=== PATIENT | female | born 1940 | race Caucasian/White ===

== ENCOUNTER 2017-10-23 16:10 | Inpatient (IN) | payer MEDICARE, OTHER ==
[2017-10-23] MEDS ORDERED: Albuterol/Ipratropium 3.0-0.5 MG/3 ML Neb Soln ONE (16:15)
[2017-10-23] MEDS ORDERED: Albuterol/Ipratropium 3.0-0.5 MG/3 ML Neb Soln NEB ONE (16:23)
--- NOTE | 2017-10-23 16:48 | EDM.PDOC ---
ED HPI GENERAL MEDICAL PROBLEM - General Chief Complaint: Respiratory Problem Stated Complaint: shortness of breath Time Seen by Provider: 10/23/17 16:20 Source of Information: Reports: Patient, Family History Limitations: Reports: Respiratory Distress - History of Present Illness INITIAL COMMENTS - FREE TEXT/NARRATIVE: Patient presents with [id number] with complaints of shortness of breath. States has not been feeling well for about 5 days. Is tachypneic on presentation. Audible wheezing noted. Denies fever. Minimal production with her cough Increased activity intolerance. Does have sinus congestion and drainage but that is chronic. Denies headache. States "feels like can't get enough air in" Onset: Gradual Duration: Day(s): Location: Reports: Chest Quality: Reports: Other (tight) Severity: Moderate Improves with: Reports: Rest Worsens with: Reports: Movement Associated Symptoms: Reports: Cough, cough w sputum, Shortness of Breath, Weakness. Denies: Confusion, Chest Pain, Diaphoresis, Fever/Chills, Headaches, Nausea/Vomiting, Syncope - Related Data Allergies Allergy/AdvReac Type Severity Reaction Status Date / Time meperidine HCl [From Demerol] Allergy Cannot Verified 12/10/14 17:11 Remember montelukast sodium Allergy Cannot Verified 12/10/14 17:11 [From Singulair] Remember Home Meds: Home Meds Albuterol [Proair HFA] 2 puff INH QID PRN 02/04/14 [History] Fluticasone/Salmeterol [Advair 250-50] 1 puff INH BEDTIME 02/04/14 [History] Hydrochlorothiazide 25 mg PO DAILY 02/04/14 [History] Lisinopril [Zestril] 10 mg PO DAILY 02/04/14 [History] Aspirin [Adult Low Dose Aspirin EC] 81 mg PO DAILY #30 tablet. 12/12/14 [Rx] Albuterol/Ipratropium [DuoNeb 3.0-0.5 MG/3 ML] 10/23/17 [History] Past Medical History Respiratory History: Reports: Asthma, COPD Musculoskeletal History: Reports: Other (See Below) Other Musculoskeletal History: MS Social & Family History - Family History Family Medical History: Noncontributory - Tobacco Use Smoking Status *Q: Never Smoker Second Hand Smoke Exposure: No - Caffeine Use Caffeine Use: Reports: Coffee - Alcohol Use Days Per Week of Alcohol Use: 0 - Recreational Drug Use Recreational Drug Use: No - Living Situation & Occupation Living situation: Reports: Occupation: Retired ED ROS GENERAL - Review of Systems Review Of Systems: See Below Constitutional: Reports: Weakness. Denies: Fever, Chills, Malaise, Decreased Appetite HEENT: Reports: Rhinitis, Sinus Problem. Denies: Ear Pain Respiratory: Reports: Shortness of Breath, Wheezing, Cough, Sputum Cardiovascular: Denies: Chest Pain, Edema, Lightheadedness Endocrine: Reports: Fatigue GI/Abdominal: Denies: Abdominal Pain, Constipation, Diarrhea, Nausea, Vomiting : Reports: No Symptoms Musculoskeletal: Reports: No Symptoms Skin: Reports: No Symptoms Neurological: Reports: No Symptoms Psychiatric: Reports: No Symptoms ED EXAM, GENERAL - Physical Exam Exam: See Below Exam Limited By: Respiratory Distress General Appearance: Alert, Moderate Distress Ears: Normal External Exam, Normal TMs Nose: Normal Inspection, Normal Mucosa, No Blood Throat/Mouth: Normal Inspection, Normal Oropharynx Head: Normocephalic Neck: Normal Inspection, Supple, Non-Tender Respiratory/Chest: Respiratory Distress, Decreased Breath Sounds, Wheezing Cardiovascular: Regular Rate, Rhythm GI/Abdominal: Normal Bowel Sounds, Soft, Non-Tender Extremities: Normal Range of Motion Neurological: Alert, Oriented Skin Exam: Warm, Dry Course - Vital Signs Last Recorded V/S: Last Vital Signs Temp 96.3 F 10/23/17 16:14 Pulse 103 H 10/23/17 16:14 Resp 18 10/23/17 16:14 BP 149/78 H 10/23/17 16:14 Pulse Ox 96 10/23/17 16:14 - Orders/Labs/Meds Orders: Active Orders 24 hr Category Date Time Status RT Aerosol Therapy [RC] ASDIRECTED Care 10/23/17 16:24 Active Chest 2V [CR] Stat Exams 10/23/17 16:23 Ordered C-REACTIVE PROTEIN [CHEM] Stat Lab 10/23/17 16:25 Received CBC WITH AUTO DIFF [HEME] Stat Lab 10/23/17 16:25 Received COMPREHENSIVE METABOLIC PN,CMP [CHEM] Stat Lab 10/23/17 16:25 Received D-DIMER QUANTITATIVE [COAG] Stat Lab 10/23/17 16:25 Received UA W/MICROSCOPIC [URIN] Stat Lab 10/23/17 16:23 Uncollected Meds: Medications Discontinued Medications Generic Name Dose Route Start Last Admin Trade Name Tarunq PRN Reason Stop Dose Admin Albuterol/Ipratropium 3 ml 10/23/17 16:23 10/23/17 16:28 Duoneb 3.0-0.5 Mg/3 Ml NEB 10/23/17 16:24 3 ml ONETIME ONE Administration Albuterol/Ipratropium Confirm 10/23/17 16:15 10/23/17 16:27 Duoneb 3.0-0.5 Mg/3 Ml Administered 10/23/17 16:16 Not Given Dose 3 ml .ROUTE .STK-MED ONE - Re-Assessments/Exams Free Text/Narrative Re-Assessment/Exam: 10/23/17 Minimal air exchange on admission to ER. Given DuoNeb and had definite improvement. 1645 Reviewed labs and xray. Stable. No notable infiltrate. Departure - Departure Time of Disposition: 17:13 Disposition: Admitted As Inpatient 68 Condition: Fair Clinical Impression: COPD with acute exacerbation - Discharge Information - Problem List & Annotations (1) Multiple sclerosis SNOMED Code(s): 26063956 Code(s): G35 - MULTIPLE SCLEROSIS Status: Chronic Priority: Medium Current Visit: No (2) COPD with acute exacerbation SNOMED Code(s): 438113626 Code(s): J44.1 - CHRONIC OBSTRUCTIVE PULMONARY DISEASE W (ACUTE) EXACERBATION Status: Acute Priority: High Current Visit: Yes - Problem List Review Problem List Initiated/Reviewed/Updated: Yes - My Orders Last 24 Hours: My Active Orders 10/23/17 16:23 Chest 2V [CR] Stat UA W/MICROSCOPIC [URIN] Stat 10/23/17 16:24 RT Aerosol Therapy [RC] ASDIRECTED 10/23/17 16:25 C-REACTIVE PROTEIN [CHEM] Stat CBC WITH AUTO DIFF [HEME] Stat COMPREHENSIVE METABOLIC PN,CMP [CHEM] Stat D-DIMER QUANTITATIVE [COAG] Stat - Assessment/Plan Admission H&P: Please use this note as an admission H&P Last 24 Hours: My Active Orders 10/23/17 16:23 Chest 2V [CR] Stat UA W/MICROSCOPIC [URIN] Stat 10/23/17 16:24 RT Aerosol Therapy [RC] ASDIRECTED 10/23/17 16:25 C-REACTIVE PROTEIN [CHEM] Stat CBC WITH AUTO DIFF [HEME] Stat COMPREHENSIVE METABOLIC PN,CMP [CHEM] Stat D-DIMER QUANTITATIVE [COAG] Stat Assessment:: COPD Exacerbation Plan: Admit to acute inpatient to Dr. De Leon for COPD Exacerbation. Initiate IV steroids, antibiotics, nebulizer treatments.
[2017-10-23 16:55] LABS: CHLORIDE,CL 103 mEq/L (98-106); SODIUM,NA 142 mEq/L (136-145)
[2017-10-23] MEDS ORDERED: Sodium Chloride 0.9% 10 ML Syringe FLUSH PRN (17:35)
[2017-10-23] MEDS ORDERED: Ondansetron 4 MG Tab.DIS PO PRN (17:35)
[2017-10-23] MEDS ORDERED: Acetaminophen 325 MG Tab PO PRN (17:35)
[2017-10-23] MEDS ORDERED: Albuterol 8 GM Inhaler INH PRN (17:35)
[2017-10-23] MEDS ORDERED: Magnesium Hydroxide 400 MG/5 ML Susp 30 ML Cup PO PRN (17:35)
[2017-10-23] MEDS ORDERED: Temazepam 15 MG Cap PO PRN (17:35)
[2017-10-23] MEDS ORDERED: Enoxaparin 40 MG/0.4 ML Syringe SUBCUT SCH (18:00)
[2017-10-23] MEDS ORDERED: Levofloxacin/Dextrose 5%-Water 500 MG in Premix Bag 1 BAG IV SCH (18:00)
[2017-10-23] MEDS: methylPREDNISolone Sodium Succinate 125 MG/2 ML SDV IVPUSH SCH (18:33)
[2017-10-23] MEDS: Formoterol/Mometasone 200-5 MCG 8.8 GM Inhaler IH SCH (19:53)
[2017-10-23] MEDS: Albuterol/Ipratropium 3.0-0.5 MG/3 ML Neb Soln NEB SCH (19:53)
[2017-10-24] MEDS: Albuterol/Ipratropium 3.0-0.5 MG/3 ML Neb Soln NEB SCH ×5 (01:47→20:22)
[2017-10-24] MEDS ORDERED: Albuterol/Ipratropium 3.0-0.5 MG/3 ML Neb Soln NEB ONE (02:00)
[2017-10-24] MEDS: methylPREDNISolone Sodium Succinate 125 MG/2 ML SDV IVPUSH SCH ×2 (06:14→20:24)
[2017-10-24] MEDS: Lisinopril 10 MG Tab PO SCH (08:08)
[2017-10-24] MEDS: Aspirin 81 MG Tab.EC PO SCH (08:11)
[2017-10-24] MEDS: Hydrochlorothiazide 25 MG Tab PO SCH (08:11)
[2017-10-24 08:22] LABS: CHLORIDE,CL 105 mEq/L (98-106); SODIUM,NA 142 mEq/L (136-145)
--- NOTE | 2017-10-24 08:55 | PCM.PN ---
- General Info Date of Service: 10/24/17 Admission Dx/Problem (Free Text): COPD Exacerbation Functional Status: Reports: Pain Controlled, Tolerating Diet. Denies: Ambulating - Review of Systems General: Reports: Weakness, Fatigue, Malaise. Denies: Fever HEENT: Reports: Sore Throat, Rhinitis, Other (hoarseness) Pulmonary: Reports: Shortness of Breath, Cough, Sputum, Wheezing Cardiovascular: Denies: Chest Pain, Edema, Lightheadedness Gastrointestinal: Denies: Abdominal Pain, Diarrhea, Nausea, Vomiting Genitourinary: Reports: No Symptoms Musculoskeletal: Reports: No Symptoms Skin: Reports: No Symptoms Neurological: Reports: No Symptoms Psychiatric: Reports: No Symptoms - Patient Data Vitals - Most Recent: Last Vital Signs Temp 98.1 F 10/24/17 08:00 Pulse 99 10/24/17 08:00 Resp 20 10/24/17 08:00 BP 140/79 10/24/17 08:08 Pulse Ox 94 L 10/24/17 08:00 Weight - Most Recent: 158 lb 3.2 oz Lab Results Last 24 Hours: Laboratory Results - last 24 hr 10/23/17 10/24/17 10/24/17 Range/Units 20:00 07:00 07:00 WBC 4.1 L (5.0-10.0) 10^3/uL RBC 4.39 (4.00-5.50) 10^6/uL Hgb 14.2 (12.0-16.0) g/dL Hct 44.4 (37.0-47.0) % MCV 101.1 H (82.0-94.0) fL MCH 32.3 H (27.0-32.0) pg MCHC 32.0 L (33.0-38.0) g/dL RDW Coeff of Ed 12.9 (11.0-15.0) % Plt Count 206 (150-400) 10^3/uL Neut % (Auto) 85.3 H (35-85) % Lymph % (Auto) 9.2 L (10-55) % [place] % (Auto) 5.3 (0-16) % Eos % (Auto) 0 (0-5) % Baso % (Auto) 0.2 (0-3) % Neut # (Auto) 3.53 (1.80-7.00) 10^3/uL Lymph # (Auto) 0.38 L (1.00-4.80) 10^3/uL [place] # (Auto) 0.22 (0.00-0.80) 10^3/uL Eos # (Auto) 0.00 (0.00-0.45) 10^3/uL Baso # (Auto) 0.01 10^3/uL Sodium 142 (136-145) mEq/L Potassium 4.5 (3.5-5.0) mEq/L Chloride 105 (98-106) mEq/L Carbon Dioxide 28 (21-32) mmol/L BUN 11 (7-18) mg/dL Creatinine 0.9 (0.6-1.0) mg/dL Est Cr Clr Drug Dosing 44.68 mL/min Estimated GFR (MDRD) > 60 (>=60) mL/min Glucose 106 H (75-99) mg/dL Calcium 9.5 (8.4-10.1) mg/dL C-Reactive Protein < 0.2 L (0.2-0.8) mg/dL Urine Color Yellow (YELLOW) Urine Appearance Slightly cloudy (CLEAR) Urine pH 5.5 (4.5-8.0) Ur Specific [place] <= 1.005 (1.003-1.020) Urine Protein Negative (NEGATIVE) mg/dL Urine Glucose (UA) Negative (NEGATIVE) mg/dL Urine Ketones Negative (NEGATIVE) mg/dL Urine Occult Blood Trace-intact H (NEGATIVE) Urine Nitrite Negative (NEGATIVE) Urine Bilirubin Negative (NEGATIVE) Urine Urobilinogen 0.2 (0.2-1.0) EU/dL Ur Leukocyte Esterase Moderate H (NEGATIVE) Urine RBC Not seen (0-5) /HPF Urine WBC 10-20 H (0-5) /HPF Ur Squamous Epith Cells Few H (NOT SEEN) /HPF Urine Bacteria Few H (NOT SEEN) /HPF Med Orders - Current: Current Medications Acetaminophen (Tylenol) 650 mg PO Q4H PRN PRN Reason: Pain (Mild 1-3)/fever Albuterol (Ventolin Hfa) 0 gm INH QID PRN PRN Reason: Shortness of Breath Albuterol (Proventil Neb Soln) 2.5 mg NEB Q4H PRN PRN Reason: Dyspnea Albuterol/Ipratropium (Duoneb 3.0-0.5 Mg/3 Ml) 3 ml NEB QIDRT [facility] Last Admin: 10/24/17 08:11 Dose: 3 ml Aspirin (Halfprin) 81 mg PO DAILY [facility] Last Admin: 10/24/17 08:11 Dose: 81 mg Enoxaparin Sodium (Lovenox) 40 mg SUBCUT Q24H [facility] Hydrochlorothiazide (Hydrochlorothiazide) 25 mg PO DAILY [facility] Last Admin: 10/24/17 08:11 Dose: 25 mg Levofloxacin/Dextrose 500 mg/ (Premix) 100 mls @ 100 mls/hr IV Q24H [facility] Lisinopril (Prinivil) 10 mg PO DAILY [facility] Last Admin: 10/24/17 08:08 Dose: 10 mg Magnesium Hydroxide (Milk Of Magnesia) 30 ml PO Q12H PRN PRN Reason: Constipation Methylprednisolone Sodium Succinate (Solu-Medrol) 62.5 mg IVPUSH Q12H [facility] Mometasone Furoate/Formoterol Fumar (Dulera 200-5 Mcg) 2 puff IH BEDTIME [facility] Last Admin: 10/23/17 19:53 Dose: 2 puff Ondansetron HCl (Zofran Odt) 4 mg PO Q4H PRN PRN Reason: nausea, able to take PO Sodium Chloride (Saline Flush) 10 ml FLUSH ASDIRECTED PRN PRN Reason: Keep Vein Open Temazepam (Restoril) 15 mg PO BEDTIME PRN PRN Reason: Sleep Discontinued Medications Albuterol/Ipratropium (Duoneb 3.0-0.5 Mg/3 Ml) 3 ml NEB ONETIME ONE Stop: 10/23/17 16:24 Last Admin: 10/23/17 16:28 Dose: 3 ml Albuterol/Ipratropium (Duoneb 3.0-0.5 Mg/3 Ml) Confirm Administered Dose 3 ml .ROUTE .STK-MED ONE Stop: 10/23/17 16:16 Last Admin: 10/23/17 16:27 Dose: Not Given Albuterol/Ipratropium (Duoneb 3.0-0.5 Mg/3 Ml) 3 ml NEB ONETIME ONE Stop: 10/24/17 02:01 Last Admin: 10/24/17 06:11 Dose: Not Given Enoxaparin Sodium (Lovenox) 40 mg SUBCUT Q24H [facility] Last Admin: 10/23/17 18:33 Dose: 40 mg Levofloxacin/Dextrose 500 mg/ (Premix) 100 mls @ 100 mls/hr IV Q24H [facility] Last Admin: 10/23/17 18:33 Dose: 100 mls/hr Methylprednisolone Sodium Succinate (Solu-Medrol) 62.5 mg IVPUSH Q12H [facility] Last Admin: 10/24/17 06:14 Dose: 62.5 mg - Exam General: Alert, Oriented HEENT: Mucous Membr. Moist/[place] Neck: Supple Lungs: Decreased Breath Sounds, Wheezing Cardiovascular: Regular Rate, Regular Rhythm GI/Abdominal Exam: Normal Bowel Sounds, Soft, Non-Tender Back Exam: Full Range of Motion Extremities: Normal Inspection, No Pedal Edema Skin: Warm, Dry Neurological: No New Focal Deficit - Problem List & Annotations (1) COPD with acute exacerbation SNOMED Code(s): 451781424 Code(s): J44.1 - CHRONIC OBSTRUCTIVE PULMONARY DISEASE W (ACUTE) EXACERBATION Status: Acute Priority: High Current Visit: Yes (2) Multiple sclerosis SNOMED Code(s): 54109116 Code(s): G35 - MULTIPLE SCLEROSIS Status: Chronic Priority: Medium Current Visit: Yes - Problem List Review Problem List Initiated/Reviewed/Updated: Yes - My Orders Last 24 Hours: My Active Orders 10/23/17 20:00 CULTURE URINE [RM] Stat 10/24/17 01:27 Albuterol [Proventil Neb Soln] 2.5 mg NEB Q4H PRN 10/24/17 01:28 RT Aerosol Therapy [RC] ASDIRECTED 10/24/17 08:44 CULTURE SPUTUM + SMEAR [RM] Routine 10/24/17 20:00 Enoxaparin [Lovenox] 40 mg SUBCUT Q24H Levofloxacin/Dextrose 5%-Water [Levaquin in D5W 500 MG/100 ML] 500 mg Premix Bag 1 bag IV Q24H methylPREDNISolone Sod Succ [Solu-MEDROL] 62.5 mg IVPUSH Q12H - Assessment Assessment:: COPD Exacerbation - Plan Plan:: Patient feeling somewhat better. States still wheezing, better after nebulizer treatment this am. Is coughing, productive of green sputum. Short of breath yet at times. Afebrile. Vitals stable. WBC still low at 4.1, CRP 0.2. Urine was positive, cultured, covered with Levaquin as well. Will continue with IV steroids and Levaquin. Nebs. Obtain a sputum specimen. Continue to follow.
[2017-10-24] MEDS ORDERED: Non-Formulary Medication 1 Each (Fluticasone/Salmeterol [Advair 250-50 Diskus] 1 PUFF) INH SCH (20:00)
[2017-10-24] MEDS: Formoterol/Mometasone 200-5 MCG 8.8 GM Inhaler IH SCH (20:21)
[2017-10-24] MEDS: Enoxaparin 40 MG/0.4 ML Syringe SUBCUT SCH (20:24)
[2017-10-24] MEDS: Levofloxacin/Dextrose 5%-Water 500 MG in Premix Bag 1 BAG IV SCH (20:26)
[2017-10-25] MEDS: Albuterol 0.083% 2.5 MG/3 ML Neb Soln NEB PRN (05:19)
[2017-10-25] MEDS: Albuterol/Ipratropium 3.0-0.5 MG/3 ML Neb Soln NEB SCH ×4 (08:08→19:37)
[2017-10-25] MEDS: Hydrochlorothiazide 25 MG Tab PO SCH (08:08)
[2017-10-25] MEDS: Lisinopril 10 MG Tab PO SCH (08:08)
[2017-10-25] MEDS: Aspirin 81 MG Tab.EC PO SCH (08:10)
[2017-10-25] MEDS: methylPREDNISolone Sodium Succinate 125 MG/2 ML SDV IVPUSH SCH ×2 (08:10→19:37)
--- NOTE | 2017-10-25 08:42 | PCM.PN ---
- General Info Date of Service: 10/25/17 Admission Dx/Problem (Free Text): COPD Exacerbation Functional Status: Reports: Pain Controlled, Tolerating Diet. Denies: Ambulating - Review of Systems General: Reports: Weakness, Fatigue, Malaise. Denies: Fever HEENT: Reports: Sinus Congestion, Sore Throat, Rhinitis Pulmonary: Reports: Shortness of Breath, Cough (productive cough but unable to expectorate), Wheezing Cardiovascular: Reports: No Symptoms Gastrointestinal: Denies: Abdominal Pain, Nausea, Vomiting Genitourinary: Reports: No Symptoms Musculoskeletal: Reports: No Symptoms Skin: Reports: No Symptoms Neurological: Reports: No Symptoms - Patient Data Vitals - Most Recent: Last Vital Signs Temp 98.1 F 10/25/17 08:00 Pulse 92 10/25/17 08:00 Resp 20 10/25/17 08:00 BP 146/65 H 10/25/17 08:08 Pulse Ox 95 10/25/17 08:00 Weight - Most Recent: 158 lb 3.2 oz Lab Results Last 24 Hours: Laboratory Results - last 24 hr 10/24/17 Range/Units 07:00 Sodium 142 (136-145) mEq/L Potassium 4.5 (3.5-5.0) mEq/L Chloride 105 (98-106) mEq/L Carbon Dioxide 28 (21-32) mmol/L BUN 11 (7-18) mg/dL Creatinine 0.9 (0.6-1.0) mg/dL Est Cr Clr Drug Dosing 44.68 mL/min Estimated GFR (MDRD) > 60 (>=60) mL/min Glucose 106 H (75-99) mg/dL Calcium 9.5 (8.4-10.1) mg/dL C-Reactive Protein < 0.2 L (0.2-0.8) mg/dL [place] Results Last 24 Hours: Microbiology 10/23/17 20:00 Urine Culture - Preliminary Urine, Clean Catch Med Orders - Current: Current Medications Acetaminophen (Tylenol) 650 mg PO Q4H PRN PRN Reason: Pain (Mild 1-3)/fever Last Admin: 10/24/17 20:30 Dose: 650 mg Albuterol (Ventolin Hfa) 0 gm INH QID PRN PRN Reason: Shortness of Breath Albuterol (Proventil Neb Soln) 2.5 mg NEB Q4H PRN PRN Reason: Dyspnea Last Admin: 10/25/17 05:19 Dose: 2.5 mg Albuterol/Ipratropium (Duoneb 3.0-0.5 Mg/3 Ml) 3 ml NEB QIDRT [facility] Last Admin: 10/25/17 08:08 Dose: 3 ml Aspirin (Halfprin) 81 mg PO DAILY [facility] Last Admin: 10/25/17 08:10 Dose: 81 mg Enoxaparin Sodium (Lovenox) 40 mg SUBCUT Q24H [facility] Last Admin: 10/24/17 20:24 Dose: 40 mg Hydrochlorothiazide (Hydrochlorothiazide) 25 mg PO DAILY [facility] Last Admin: 10/25/17 08:08 Dose: 25 mg Levofloxacin/Dextrose 500 mg/ (Premix) 100 mls @ 100 mls/hr IV Q24H [facility] Last Admin: 10/24/17 20:26 Dose: 100 mls/hr Lisinopril (Prinivil) 10 mg PO DAILY [facility] Last Admin: 10/25/17 08:08 Dose: 10 mg Magnesium Hydroxide (Milk Of Magnesia) 30 ml PO Q12H PRN PRN Reason: Constipation Methylprednisolone Sodium Succinate (Solu-Medrol) 62.5 mg IVPUSH Q12H [facility] Last Admin: 10/25/17 08:10 Dose: 62.5 mg Mometasone Furoate/Formoterol Fumar (Dulera 200-5 Mcg) 2 puff IH BEDTIME [facility] Last Admin: 10/24/17 20:21 Dose: Not Given Ondansetron HCl (Zofran Odt) 4 mg PO Q4H PRN PRN Reason: nausea, able to take PO Sodium Chloride (Saline Flush) 10 ml FLUSH ASDIRECTED PRN PRN Reason: Keep Vein Open Temazepam (Restoril) 15 mg PO BEDTIME PRN PRN Reason: Sleep Discontinued Medications Albuterol/Ipratropium (Duoneb 3.0-0.5 Mg/3 Ml) 3 ml NEB ONETIME ONE Stop: 10/23/17 16:24 Last Admin: 10/23/17 16:28 Dose: 3 ml Albuterol/Ipratropium (Duoneb 3.0-0.5 Mg/3 Ml) Confirm Administered Dose 3 ml .ROUTE .STK-MED ONE Stop: 10/23/17 16:16 Last Admin: 10/23/17 16:27 Dose: Not Given Albuterol/Ipratropium (Duoneb 3.0-0.5 Mg/3 Ml) 3 ml NEB ONETIME ONE Stop: 10/24/17 02:01 Last Admin: 10/24/17 06:11 Dose: Not Given Enoxaparin Sodium (Lovenox) 40 mg SUBCUT Q24H [facility] Last Admin: 10/23/17 18:33 Dose: 40 mg Levofloxacin/Dextrose 500 mg/ (Premix) 100 mls @ 100 mls/hr IV Q24H [facility] Last Admin: 10/23/17 18:33 Dose: 100 mls/hr Methylprednisolone Sodium Succinate (Solu-Medrol) 62.5 mg IVPUSH Q12H [facility] Last Admin: 10/24/17 06:14 Dose: 62.5 mg - Exam General: Alert, Oriented HEENT: Mucous Membr. Moist/[place] Neck: Supple Lungs: Decreased Breath Sounds, Wheezing Cardiovascular: Regular Rate, Regular Rhythm GI/Abdominal Exam: Normal Bowel Sounds, Soft, Non-Tender Extremities: Normal Inspection, No Pedal Edema Skin: Warm, Dry Neurological: No New Focal Deficit - Problem List & Annotations (1) COPD with acute exacerbation SNOMED Code(s): 664722953 Code(s): J44.1 - CHRONIC OBSTRUCTIVE PULMONARY DISEASE W (ACUTE) EXACERBATION Status: Acute Priority: High Current Visit: Yes (2) Multiple sclerosis SNOMED Code(s): 29450255 Code(s): G35 - MULTIPLE SCLEROSIS Status: Chronic Priority: Medium Current Visit: Yes - Problem List Review Problem List Initiated/Reviewed/Updated: Yes - My Orders Last 24 Hours: My Active Orders 10/24/17 20:00 Enoxaparin [Lovenox] 40 mg SUBCUT Q24H Levofloxacin/Dextrose 5%-Water [Levaquin in D5W 500 MG/100 ML] 500 mg Premix Bag 1 bag IV Q24H methylPREDNISolone Sod Succ [Solu-MEDROL] 62.5 mg IVPUSH Q12H - Assessment Assessment:: COPD Exacerbation - Plan Plan:: Patient feeling somewhat better. States still wheezing, better after nebulizer treatment this am. Is coughing, productive of green sputum. Short of breath yet at times. Afebrile. Vitals stable. WBC still low at 4.1, CRP 0.2. Urine was positive, cultured, covered with Levaquin as well. Will continue with IV steroids and Levaquin. Nebs. Obtain a sputum specimen. Continue to follow. 10-25-2017 Patient feeling more anxious this am, chest tight. Increased wheezing. Patient states more short of breath and tight due to coughing spell. Cough moist but unable to expectorate. Afebrile. Vital signs stable. Awaiting full urine culture. Not yet obtained sputum culture. Will continue with IV Steroids, Levaquin and nebs. Continue to monitor. Inappropriate yet for discharge.
[2017-10-25] MEDS ORDERED: FLU Vacc QS 2017-18 (36mos UP)/PF 60 MCG/0.5 ML Syringe IM ONE (10:36)
[2017-10-25] MEDS: Enoxaparin 40 MG/0.4 ML Syringe SUBCUT SCH (19:36)
[2017-10-25] MEDS: Formoterol/Mometasone 200-5 MCG 8.8 GM Inhaler IH SCH (19:37)
[2017-10-25] MEDS: Levofloxacin/Dextrose 5%-Water 500 MG in Premix Bag 1 BAG IV SCH (19:46)
[2017-10-26 07:36] LABS: CHLORIDE,CL 104 mEq/L (98-106); SODIUM,NA 142 mEq/L (136-145)
[2017-10-26] MEDS: Hydrochlorothiazide 25 MG Tab PO SCH (07:42)
[2017-10-26] MEDS: Lisinopril 10 MG Tab PO SCH (07:42)
[2017-10-26] MEDS: Albuterol/Ipratropium 3.0-0.5 MG/3 ML Neb Soln NEB SCH ×4 (07:42→19:37)
[2017-10-26] MEDS: Aspirin 81 MG Tab.EC PO SCH (07:42)
[2017-10-26] MEDS: methylPREDNISolone Sodium Succinate 125 MG/2 ML SDV IVPUSH SCH ×2 (07:43→19:38)
--- NOTE | 2017-10-26 11:55 | PCM.PN ---
- General Info Date of Service: 10/26/17 Admission Dx/Problem (Free Text): COPD Exacerbation Functional Status: Reports: Pain Controlled, Tolerating Diet. Denies: Ambulating - Review of Systems General: Reports: Weakness, Fatigue. Denies: Fever HEENT: Reports: Sinus Congestion, Rhinitis. Denies: Sore Throat Pulmonary: Reports: Shortness of Breath, Cough, Sputum, Wheezing Cardiovascular: Denies: Chest Pain, Edema, Lightheadedness Gastrointestinal: Denies: Abdominal Pain, Decreased Appetite, Nausea, Vomiting Genitourinary: Reports: No Symptoms Musculoskeletal: Reports: No Symptoms Skin: Reports: No Symptoms Neurological: Reports: No Symptoms - Patient Data Vitals - Most Recent: Last Vital Signs Temp 97.2 F 10/26/17 08:00 Pulse 89 10/26/17 08:00 Resp 20 10/26/17 08:00 BP 143/88 H 10/26/17 08:00 Pulse Ox 95 10/26/17 08:00 Weight - Most Recent: 158 lb 3.2 oz Lab Results Last 24 Hours: Laboratory Results - last 24 hr 10/26/17 10/26/17 Range/Units 07:00 07:00 WBC 11.3 H (5.0-10.0) 10^3/uL RBC 4.58 (4.00-5.50) 10^6/uL Hgb 14.9 (12.0-16.0) g/dL Hct 46.8 (37.0-47.0) % MCV 102.2 H (82.0-94.0) fL MCH 32.5 H (27.0-32.0) pg MCHC 31.8 L (33.0-38.0) g/dL RDW Coeff of Ed 13.3 (11.0-15.0) % Plt Count 260 (150-400) 10^3/uL Neut % (Auto) 87.8 H (35-85) % Lymph % (Auto) 5.5 L (10-55) % [place] % (Auto) 6.5 (0-16) % Eos % (Auto) 0.1 (0-5) % Baso % (Auto) 0.1 (0-3) % Neut # (Auto) 9.96 H (1.80-7.00) 10^3/uL Lymph # (Auto) 0.62 L (1.00-4.80) 10^3/uL [place] # (Auto) 0.74 (0.00-0.80) 10^3/uL Eos # (Auto) 0.01 (0.00-0.45) 10^3/uL Baso # (Auto) 0.01 10^3/uL Sodium 142 (136-145) mEq/L Potassium 4.1 (3.5-5.0) mEq/L Chloride 104 (98-106) mEq/L Carbon Dioxide 33 H (21-32) mmol/L BUN 26 H D (7-18) mg/dL Creatinine 0.9 (0.6-1.0) mg/dL Est Cr Clr Drug Dosing 44.68 mL/min Estimated GFR (MDRD) > 60 (>=60) mL/min Glucose 115 H (75-99) mg/dL Calcium 9.6 (8.4-10.1) mg/dL C-Reactive Protein < 0.2 L (0.2-0.8) mg/dL [place] Results Last 24 Hours: Microbiology 10/25/17 09:00 Gram Stain - Final Sputum - Expectorated 10/23/17 20:00 Urine Culture - Final Urine, Clean Catch Med Orders - Current: Current Medications Acetaminophen (Tylenol) 650 mg PO Q4H PRN PRN Reason: Pain (Mild 1-3)/fever Last Admin: 10/24/17 20:30 Dose: 650 mg Albuterol (Ventolin Hfa) 0 gm INH QID PRN PRN Reason: Shortness of Breath Albuterol (Proventil Neb Soln) 2.5 mg NEB Q4H PRN PRN Reason: Dyspnea Last Admin: 10/25/17 05:19 Dose: 2.5 mg Albuterol/Ipratropium (Duoneb 3.0-0.5 Mg/3 Ml) 3 ml NEB QIDRT COUNTS INCLUDE 234 BEDS AT THE [facility] Last Admin: 10/26/17 11:34 Dose: 3 ml Aspirin (Halfprin) 81 mg PO DAILY COUNTS INCLUDE 234 BEDS AT THE [facility] Last Admin: 10/26/17 07:42 Dose: 81 mg Enoxaparin Sodium (Lovenox) 40 mg SUBCUT Q24H COUNTS INCLUDE 234 BEDS AT THE [facility] Last Admin: 10/25/17 19:36 Dose: 40 mg Hydrochlorothiazide (Hydrochlorothiazide) 25 mg PO DAILY COUNTS INCLUDE 234 BEDS AT THE [facility] Last Admin: 10/26/17 07:42 Dose: 25 mg Levofloxacin/Dextrose 500 mg/ (Premix) 100 mls @ 100 mls/hr IV Q24H COUNTS INCLUDE 234 BEDS AT THE [facility] Last Admin: 10/25/17 19:46 Dose: 100 mls/hr Lisinopril (Prinivil) 10 mg PO DAILY COUNTS INCLUDE 234 BEDS AT THE [facility] Last Admin: 10/26/17 07:42 Dose: 10 mg Magnesium Hydroxide (Milk Of Magnesia) 30 ml PO Q12H PRN PRN Reason: Constipation Methylprednisolone Sodium Succinate (Solu-Medrol) 62.5 mg IVPUSH Q12H COUNTS INCLUDE 234 BEDS AT THE [facility] Last Admin: 10/26/17 07:43 Dose: 62.5 mg Mometasone Furoate/Formoterol Fumar (Dulera 200-5 Mcg) 2 puff IH BEDTIME COUNTS INCLUDE 234 BEDS AT THE [facility] Last Admin: 10/25/17 19:37 Dose: 2 puff Ondansetron HCl (Zofran Odt) 4 mg PO Q4H PRN PRN Reason: nausea, able to take PO Sodium Chloride (Saline Flush) 10 ml FLUSH ASDIRECTED PRN PRN Reason: Keep Vein Open Temazepam (Restoril) 15 mg PO BEDTIME PRN PRN Reason: Sleep Discontinued Medications Albuterol/Ipratropium (Duoneb 3.0-0.5 Mg/3 Ml) 3 ml NEB ONETIME ONE Stop: 10/23/17 16:24 Last Admin: 10/23/17 16:28 Dose: 3 ml Albuterol/Ipratropium (Duoneb 3.0-0.5 Mg/3 Ml) Confirm Administered Dose 3 ml .ROUTE .STK-MED ONE Stop: 10/23/17 16:16 Last Admin: 10/23/17 16:27 Dose: Not Given Albuterol/Ipratropium (Duoneb 3.0-0.5 Mg/3 Ml) 3 ml NEB ONETIME ONE Stop: 10/24/17 02:01 Last Admin: 10/24/17 06:11 Dose: Not Given Enoxaparin Sodium (Lovenox) 40 mg SUBCUT Q24H COUNTS INCLUDE 234 BEDS AT THE [facility] Last Admin: 10/23/17 18:33 Dose: 40 mg Levofloxacin/Dextrose 500 mg/ (Premix) 100 mls @ 100 mls/hr IV Q24H COUNTS INCLUDE 234 BEDS AT THE [facility] Last Admin: 10/23/17 18:33 Dose: 100 mls/hr Influenza Virus Vaccine (Fluzone Quad [id number]) 60 mcg IM .ONCE ONE Stop: 10/25/17 10:37 Last Admin: 10/25/17 12:36 Dose: 60 mcg Methylprednisolone Sodium Succinate (Solu-Medrol) 62.5 mg IVPUSH Q12H [place] Last Admin: 10/24/17 06:14 Dose: 62.5 mg - Exam General: Alert, Oriented HEENT: Mucous Membr. Moist/[place] Neck: Supple Lungs: Decreased Breath Sounds, Wheezing Cardiovascular: Regular Rate, Regular Rhythm GI/Abdominal Exam: Normal Bowel Sounds, Soft, Non-Tender Extremities: Normal Inspection, No Pedal Edema Skin: Warm, Dry Neurological: No New Focal Deficit Psy/Mental Status: Alert, Normal Affect, Normal Mood - Problem List & Annotations (1) COPD with acute exacerbation SNOMED Code(s): 790966168 Code(s): J44.1 - CHRONIC OBSTRUCTIVE PULMONARY DISEASE W (ACUTE) EXACERBATION Status: Acute Priority: High Current Visit: Yes (2) Multiple sclerosis SNOMED Code(s): 83215955 Code(s): G35 - MULTIPLE SCLEROSIS Status: Chronic Priority: Medium Current Visit: Yes - Problem List Review Problem List Initiated/Reviewed/Updated: Yes - Assessment Assessment:: COPD Exacerbation - Plan Plan:: Patient feeling somewhat better. States still wheezing, better after nebulizer treatment this am. Is coughing, productive of green sputum. Short of breath yet at times. Afebrile. Vitals stable. WBC still low at 4.1, CRP 0.2. Urine was positive, cultured, covered with Levaquin as well. Will continue with IV steroids and Levaquin. Nebs. Obtain a sputum specimen. Continue to follow. 10-25-2017 Patient feeling more anxious this am, chest tight. Increased wheezing. Patient states more short of breath and tight due to coughing spell. Cough moist but unable to expectorate. Afebrile. Vital signs stable. Awaiting full urine culture. Not yet obtained sputum culture. Will continue with IV Steroids, Levaquin and nebs. Continue to monitor. Inappropriate yet for discharge. 10-26-2017 Patient better today than yesterday. Does still wheeze at times, productive cough. Were able to collect a sputum specimen today and sent to lab. WBC up to 11.3, on steroids. CRP remains negative. Final urine culture shows greater than 3 colony types. Encourage ambulation today. Continue same meds. Possible discharge in am.
[2017-10-26] MEDS: Formoterol/Mometasone 200-5 MCG 8.8 GM Inhaler IH SCH (19:35)
[2017-10-26] MEDS: Levofloxacin/Dextrose 5%-Water 500 MG in Premix Bag 1 BAG IV SCH (19:37)
[2017-10-26] MEDS: Enoxaparin 40 MG/0.4 ML Syringe SUBCUT SCH (19:37)
[2017-10-27] MEDS: Albuterol 0.083% 2.5 MG/3 ML Neb Soln NEB PRN (03:33)
[2017-10-27] MEDS: Aspirin 81 MG Tab.EC PO SCH (07:34)
[2017-10-27] MEDS: methylPREDNISolone Sodium Succinate 125 MG/2 ML SDV IVPUSH SCH (07:35)
[2017-10-27] MEDS: Hydrochlorothiazide 25 MG Tab PO SCH (07:38)
[2017-10-27] MEDS: Albuterol/Ipratropium 3.0-0.5 MG/3 ML Neb Soln NEB SCH ×2 (07:40→11:49)
[2017-10-27] MEDS: Lisinopril 10 MG Tab PO SCH (07:40)
[2017-10-27 07:42] VITALS: BP 128/88
[2017-10-27 08:47] LABS: CHLORIDE,CL 102 mEq/L (98-106); SODIUM,NA 141 mEq/L (136-145)
--- NOTE | 2017-10-27 14:34 | PCM.DCSUM1 ---
Discharge Summary - Hospital Course Free Text/Narrative:: Patient presented to ER over the weekend with increased shortness of breath and wheezing. States was unable to tolerate her nebulizer treatments as it was difficult to breath in the med. She had been noting increased sinus congestion over 5 days or so and more shortness of breath building over 24 hours. Presented with diffuse wheezing, minimal air exchange but was maintaining her oxygen sats over 90%. Lab work done indicated more of a viral infection, chest xray clear. UA was noted to have occasional bacteria. Culture ordered. Admitted for COPD Exacerbation and started on IV steroids, nebs and Levaquin. Did get good relief with Duoneb done through a mask. - Discharge Data Discharge Date: 10/27/17 Discharge Disposition: Home, Self-Care 01 Condition: Good - Discharge Diagnosis/Problem(s) (1) COPD with acute exacerbation SNOMED Code(s): 101192124 ICD Code: J44.1 - CHRONIC OBSTRUCTIVE PULMONARY DISEASE W (ACUTE) EXACERBATION Status: Acute Priority: High (2) Multiple sclerosis SNOMED Code(s): 68945692 ICD Code: G35 - MULTIPLE SCLEROSIS Status: Chronic Priority: Medium - Patient Summary/Data Complications: none Hospital Course: Patient has had slow improvement of overall status. Does continue to have occasional wheezing but recovers well after her nebulizer treatments. Is able ambulate in the halls now without dyspnea but does tolerate. She has maintained her oxygen levels on room air. Did obtain a sputum culture which showed normal penny. Urine culture showed greater than 3 colonizes. Lab results are stable. WBC did increase to 11.3 but CRP remained negative. Has been on steroids. Appetite has improved, activity tolerance improved. - Patient Instructions Diet: Usual Diet as Tolerated Activity: As Tolerated - Discharge Plan Prescriptions/Med Rec: Levofloxacin [Levaquin] 500 mg PO Q24H #7 tablet predniSONE [Prednisone] 20 mg PO DAILY #5 tablet Home Medications: Home Meds Albuterol [Proair HFA] 2 puff INH QID PRN 02/04/14 [History] Hydrochlorothiazide 25 mg PO DAILY 02/04/14 [History] Lisinopril [Zestril] 10 mg PO DAILY 02/04/14 [History] Aspirin [Adult Low Dose Aspirin EC] 81 mg PO DAILY #30 tablet. 12/12/14 [Rx] Albuterol/Ipratropium [DuoNeb 3.0-0.5 MG/3 ML] 1 ampule INH QID PRN 10/23/17 [ History] Fluticasone/Salmeterol [Advair 250-50 Diskus] 1 puff INH BEDTIME 10/23/17 [ History] Levofloxacin [Levaquin] 500 mg PO Q24H #7 tablet 10/27/17 [Rx] predniSONE [Prednisone] 20 mg PO DAILY #5 tablet 10/27/17 [Rx] Forms: ED Department Discharge Referrals: Maine Rico PA-C [Family Provider] - (Follow up with Maine Rico PA-C in 10 days) - Discharge Summary/Plan Comment DC Time >30 min.: No Discharge Summary/Plan Comment: Discharge home on Levaquin, prednisone and continue nebulizer treatments. Follow up with Maine Rico in 10 days. - General Info Date of Service: 10/27/17 Admission Dx/Problem (Free Text: COPD Exacerbation Functional Status: Reports: Pain Controlled, Tolerating Diet, Ambulating - Review of Systems General: Reports: Weakness, Fatigue. Denies: Fever, Malaise HEENT: Reports: Rhinitis Pulmonary: Reports: Shortness of Breath, Cough, Wheezing Cardiovascular: Denies: Chest Pain, Edema, Lightheadedness Gastrointestinal: Denies: Abdominal Pain, Nausea, Vomiting Genitourinary: Reports: No Symptoms Musculoskeletal: Reports: No Symptoms Skin: Reports: No Symptoms Neurological: Reports: No Symptoms - Patient Data Vitals - Most Recent: Last Vital Signs Temp 97.2 F 10/27/17 07:43 Pulse 84 10/27/17 07:43 Resp 16 10/27/17 07:43 BP 128/88 10/27/17 07:43 Pulse Ox 96 10/27/17 07:43 Weight - Most Recent: 158 lb 3.2 oz Lab Results - Last 24 hrs: Laboratory Results - last 24 hr 10/27/17 10/27/17 Range/Units 08:30 08:30 WBC 6.7 (5.0-10.0) 10^3/uL RBC 4.38 (4.00-5.50) 10^6/uL Hgb 14.4 (12.0-16.0) g/dL Hct 44.7 (37.0-47.0) % MCV 102.1 H (82.0-94.0) fL MCH 32.9 H (27.0-32.0) pg MCHC 32.2 L (33.0-38.0) g/dL RDW Coeff of Ed 13.1 (11.0-15.0) % Plt Count 215 (150-400) 10^3/uL Neut % (Auto) 88.3 H (35-85) % Lymph % (Auto) 7.6 L (10-55) % [place] % (Auto) 4.0 (0-16) % Eos % (Auto) 0 (0-5) % Baso % (Auto) 0.1 (0-3) % Neut # (Auto) 5.95 (1.80-7.00) 10^3/uL Lymph # (Auto) 0.51 L (1.00-4.80) 10^3/uL [place] # (Auto) 0.27 (0.00-0.80) 10^3/uL Eos # (Auto) 0.00 (0.00-0.45) 10^3/uL Baso # (Auto) 0.01 10^3/uL Sodium 141 (136-145) mEq/L Potassium 3.7 (3.5-5.0) mEq/L Chloride 102 (98-106) mEq/L Carbon Dioxide 31 (21-32) mmol/L BUN 26 H (7-18) mg/dL Creatinine 1.1 H (0.6-1.0) mg/dL Est Cr Clr Drug Dosing 36.55 mL/min Estimated GFR (MDRD) 48 L (>=60) mL/min Glucose 169 H D (75-99) mg/dL Calcium 9.0 (8.4-10.1) mg/dL C-Reactive Protein < 0.2 L (0.2-0.8) mg/dL [facility] Results - Last 24 hrs: Microbiology 10/25/17 09:00 Gram Stain - Final Sputum - Expectorated Sputum Culture - Preliminary Med Orders - Current: Current Medications Discontinued Medications Acetaminophen (Tylenol) 650 mg PO Q4H PRN PRN Reason: Pain (Mild 1-3)/fever Last Admin: 10/24/17 20:30 Dose: 650 mg Albuterol (Ventolin Hfa) 0 gm INH QID PRN PRN Reason: Shortness of Breath Last Admin: 10/26/17 19:36 Dose: 2 puff Albuterol (Proventil Neb Soln) 2.5 mg NEB Q4H PRN PRN Reason: Dyspnea Last Admin: 10/27/17 03:33 Dose: 2.5 mg Albuterol/Ipratropium (Duoneb 3.0-0.5 Mg/3 Ml) 3 ml NEB ONETIME ONE Stop: 10/23/17 16:24 Last Admin: 10/23/17 16:28 Dose: 3 ml Albuterol/Ipratropium (Duoneb 3.0-0.5 Mg/3 Ml) Confirm Administered Dose 3 ml .ROUTE .STK-MED ONE Stop: 10/23/17 16:16 Last Admin: 10/23/17 16:27 Dose: Not Given Albuterol/Ipratropium (Duoneb 3.0-0.5 Mg/3 Ml) 3 ml NEB QIDRT [facility] Last Admin: 10/27/17 11:49 Dose: 3 ml Albuterol/Ipratropium (Duoneb 3.0-0.5 Mg/3 Ml) 3 ml NEB ONETIME ONE Stop: 10/24/17 02:01 Last Admin: 10/24/17 06:11 Dose: Not Given Aspirin (Halfprin) 81 mg PO DAILY [facility] Last Admin: 10/27/17 07:34 Dose: 81 mg Enoxaparin Sodium (Lovenox) 40 mg SUBCUT Q24H [facility] Last Admin: 10/23/17 18:33 Dose: 40 mg Enoxaparin Sodium (Lovenox) 40 mg SUBCUT Q24H [facility] Last Admin: 10/26/17 19:37 Dose: 40 mg Hydrochlorothiazide (Hydrochlorothiazide) 25 mg PO DAILY [facility] Last Admin: 10/27/17 07:38 Dose: 25 mg Levofloxacin/Dextrose 500 mg/ (Premix) 100 mls @ 100 mls/hr IV Q24H [facility] Last Admin: 10/23/17 18:33 Dose: 100 mls/hr Levofloxacin/Dextrose 500 mg/ (Premix) 100 mls @ 100 mls/hr IV Q24H [facility] Last Admin: 10/26/17 19:37 Dose: 100 mls/hr Influenza Virus Vaccine (Fluzone Quad [id number]) 60 mcg IM .ONCE ONE Stop: 10/25/17 10:37 Last Admin: 10/25/17 12:36 Dose: 60 mcg Lisinopril (Prinivil) 10 mg PO DAILY [facility] Last Admin: 10/27/17 07:40 Dose: 10 mg Magnesium Hydroxide (Milk Of Magnesia) 30 ml PO Q12H PRN PRN Reason: Constipation Methylprednisolone Sodium Succinate (Solu-Medrol) 62.5 mg IVPUSH Q12H [facility] Last Admin: 10/24/17 06:14 Dose: 62.5 mg Methylprednisolone Sodium Succinate (Solu-Medrol) 62.5 mg IVPUSH Q12H [facility] Last Admin: 10/27/17 07:35 Dose: 62.5 mg Mometasone Furoate/Formoterol Fumar (Dulera 200-5 Mcg) 2 puff IH BEDTIME [facility] Last Admin: 10/26/17 19:35 Dose: 2 puff Ondansetron HCl (Zofran Odt) 4 mg PO Q4H PRN PRN Reason: nausea, able to take PO Sodium Chloride (Saline Flush) 10 ml FLUSH ASDIRECTED PRN PRN Reason: Keep Vein Open Temazepam (Restoril) 15 mg PO BEDTIME PRN PRN Reason: Sleep - Exam General: Reports: Alert, Oriented HEENT: Reports: Mucous Membr. Moist/[place] Neck: Reports: Supple Lungs: Reports: Decreased Breath Sounds, Wheezing (fine expiratory wheezing, much better air exchange than admit ) Cardiovascular: Reports: Regular Rate, Regular Rhythm GI/Abdominal Exam: Normal Bowel Sounds, Soft, Non-Tender Extremities: No Pedal Edema Skin: Reports: Warm, Dry Neurological: Reports: No New Focal Deficit *Q Meaningful Use (DIS) - VTE *Q VTE Criteria *Q: - Stroke *Q Stroke Criteria *Q: - AMI *Q AMI Criteria *Q:
== END 2017-10-27 13:15 | disposition home or self-care (01) | DRG 192 ==
LOC: CC.ED 16:10 → UNDOADMIN 17:04 → CC.MS 17:04
PROVIDERS: ADMIT Physician Assistant Medical; ATTEND Family Medicine
PROC: 3E0234Z Introduction of Serum, Toxoid and Vaccine into Muscle, Percutaneous Approach (ICD-10-PCS; principal; 2017-10-25)
DX: J44.1 Chronic obstructive pulmonary disease with (acute) exacerbation (principal); G35 Multiple sclerosis; Z88.6 Allergy status to analgesic agent; Z88.8 Allergy status to other drugs, medicaments and biological substances; Z79.82 Long term (current) use of aspirin; Z79.899 Other long term (current) drug therapy; Z23 Encounter for immunization
CPT/HCPCS: 36415; 71020; 80048; 80053; 81001; 85025; 85379; 86140; 87070; 87086; 87205; 90686; 94640; 94644; 99285; A9270-GY; G0008; J1650; J1956; J2930; J7620-GY

== ENCOUNTER 2017-10-29 08:00 | Observation (INO) | payer MEDICARE, OTHER ==
[2017-10-29] MEDS ORDERED: Levofloxacin 500 MG Tab PO SCH (09:00)
--- NOTE | 2017-10-29 09:30 | EDM.PDOC ---
ED HPI GENERAL MEDICAL PROBLEM - General Chief Complaint: General Stated Complaint: weakness Time Seen by Provider: 10/29/17 08:28 Source of Information: Reports: Patient, Family History Limitations: Reports: No Limitations - History of Present Illness INITIAL COMMENTS - FREE TEXT/NARRATIVE: This patient is a 77 year old female that presents to the ER via EMS. Daughter is with her at bedside. The patient reports that she was seen in the ER, then admitted on Tuesday and was discharged home on . The patient reports that after she went home she has become more weak. The patient reports that she was asked to stay in the hospital longer than and recommended home health and other forms of assistance, but it is reported that she declined this. Patient lives at home with her . She reports that this morning she had to go to the bathroom, got up on her own, used walker, but could not get up off the toilet on her own. She reports she yelled for her for 1 hour and he did not hear her, until then. She reports she sat on her toilet for 1 hour due to generally weak. Patient reports that she struggled to walk with a walker at the house. She reports that she does not feel she is able to stay at home with her and care for herself due to her weakness. The daughter at bedside reports the patient has been more weak today and has not been drinking well. She reports that she works and it is difficulty to assist in caring for her mother. At this time I do not feel it is safe for patient to return home since she is unable to perform her ADLs on her own and lack of assistance this morning. She also has renal insufficiency. I will admit obs. She denies vivas, dizziness, n, v, d, f, cp, abd pain, urinary/bowel changes. She reports history of COPD with chronic SOA, unchanged. Onset: Gradual Onset Date: 10/29/17 Duration: Day(s): (1) Severity: Mild Improves with: Reports: None Worsens with: Reports: None Associated Symptoms: Reports: Shortness of Breath (unchanged). Denies: Confusion, Chest Pain, Cough, cough w sputum, Diaphoresis, Fever/Chills, Headaches, Loss of Appetite, Malaise, Nausea/Vomiting, Rash, Seizure, Syncope, Weakness Neck Pain Score (Numeric/FACES): 3 - Related Data Allergies Allergy/AdvReac Type Severity Reaction Status Date / Time meperidine HCl [From Demerol] Allergy Cannot Verified 10/29/17 08:04 Remember montelukast sodium Allergy Cannot Verified 10/29/17 08:04 [From Singulair] Remember Home Meds: Home Meds Albuterol [Proair HFA] 2 puff INH QID PRN 02/04/14 [History] Hydrochlorothiazide 25 mg PO DAILY 02/04/14 [History] Lisinopril [Zestril] 10 mg PO DAILY 02/04/14 [History] Aspirin [Adult Low Dose Aspirin EC] 81 mg PO DAILY #30 tablet. 12/12/14 [Rx] Albuterol/Ipratropium [DuoNeb 3.0-0.5 MG/3 ML] 1 ampule INH QID PRN 10/23/17 [ History] Fluticasone/Salmeterol [Advair 250-50 Diskus] 1 puff INH BEDTIME 10/23/17 [ History] Levofloxacin [Levaquin] 500 mg PO Q24H #7 tablet 10/27/17 [Rx] predniSONE [Prednisone] 20 mg PO DAILY #5 tablet 10/27/17 [Rx] Past Medical History Respiratory History: Reports: Asthma, COPD Musculoskeletal History: Reports: Other (See Below) Other Musculoskeletal History: MS Social & Family History - Family History Family Medical History: Noncontributory - Tobacco Use Smoking Status *Q: Never Smoker Second Hand Smoke Exposure: No - Caffeine Use Caffeine Use: Reports: None - Alcohol Use Days Per Week of Alcohol Use: 0 - Recreational Drug Use Recreational Drug Use: No - Living Situation & Occupation Living situation: Reports: Occupation: Retired ED ROS GENERAL - Review of Systems Review Of Systems: See Below Constitutional: Reports: Malaise, Weakness (general) HEENT: Reports: No Symptoms Respiratory: Reports: Shortness of Breath (chronic, unchanged. ) Cardiovascular: Reports: No Symptoms Endocrine: Reports: No Symptoms GI/Abdominal: Reports: No Symptoms : Reports: No Symptoms Musculoskeletal: Reports: No Symptoms Skin: Reports: No Symptoms Neurological: Reports: No Symptoms Psychiatric: Reports: No Symptoms Hematologic/Lymphatic: Reports: No Symptoms Immunologic: Reports: No Symptoms ED EXAM, GENERAL - Physical Exam Exam: See Below Exam Limited By: No Limitations General Appearance: Alert, WD/WN, No Apparent Distress Eye Exam: Bilateral Eye: Normal Inspection, PERRL Ears: Normal External Exam, Normal Canal, Hearing Grossly Normal Ear Exam: Bilateral Ear: Auricle Normal, Canal Normal, TM normal Nose: Normal Inspection, Normal Mucosa, No Blood Throat/Mouth: Normal Inspection, Normal Lips, Normal Gums, Normal Oropharynx, Normal Voice, No Airway Compromise Head: Atraumatic, Normocephalic Neck: Normal Inspection, Supple, Non-Tender, Full Range of Motion Respiratory/Chest: No Respiratory Distress, No Accessory Muscle Use, Chest Non- Tender, Rhonchi, Wheezing. No: Accessory Muscle Use, Retractions, Splinting Cardiovascular: Normal Peripheral Pulses, Regular Rate, Rhythm, No Edema, No Gallop, No JVD, No Murmur, No Rub Peripheral Pulses: 2+: Radial (L), Radial (R), Posterior Tibial (L), Posterior Tibial (R), Dorsalis Pedis (L), Dorsalis Pedis (R) GI/Abdominal: Soft, Non-Tender, No Organomegaly, No Distention, No Mass, Pelvis Stable Back Exam: Normal Inspection, Full Range of Motion Extremities: Normal Inspection, Normal Range of Motion, Non-Tender, No Pedal Edema, Normal Capillary Refill Neurological: Alert, Oriented, CN II-XII Intact, Abnormal Gait (gait with assistance with standing to bathroom. Generally weak. ) Psychiatric: Normal Affect, Normal Mood Skin Exam: Warm, Dry, Intact, Normal Color, No Rash Lymphatic: No Adenopathy Course - Vital Signs Last Recorded V/S: Last Vital Signs Temp 98.2 F 10/30/17 16:00 Pulse 102 H 10/30/17 16:00 Resp 19 10/30/17 16:00 BP 138/54 L 10/30/17 16:00 Pulse Ox 97 10/30/17 16:00 - Orders/Labs/Meds Orders: Medication Orders Acetaminophen (Tylenol) 650 mg PO Q4H PRN PRN Reason: Pain (Mild 1-3)/fever Hydrocodone Bitart/Acetaminophen ([place] 325-5 Mg) 1 tab PO Q4H PRN PRN Reason: Pain (moderate 4-6) Albuterol (Ventolin Hfa) 0 gm INH QID PRN PRN Reason: Shortness of Breath Albuterol/Ipratropium (Duoneb 3.0-0.5 Mg/3 Ml) 3 ml INH QID PRN PRN Reason: Dyspnea Albuterol/Ipratropium (Duoneb 3.0-0.5 Mg/3 Ml) 3 ml NEB TIDRT [facility] Last Admin: 10/30/17 20:01 Dose: 3 ml Admin: 10/30/17 13:54 Dose: 3 ml Admin: 10/30/17 07:35 Dose: 3 ml Admin: 10/29/17 20:26 Dose: 3 ml Admin: 10/29/17 14:19 Dose: 3 ml Aspirin (Halfprin) 81 mg PO DAILY [facility] Last Admin: 10/30/17 07:35 Dose: 81 mg Docusate Sodium (Colace) 100 mg PO BID PRN PRN Reason: Constipation Enoxaparin Sodium (Lovenox) 40 mg SUBCUT DAILY [facility] Last Admin: 10/30/17 09:01 Dose: 40 mg Hydrochlorothiazide (Hydrochlorothiazide) 25 mg PO DAILY [facility] Last Admin: 10/30/17 07:31 Dose: 25 mg Levofloxacin (Levaquin) 500 mg PO Q24H [facility] Stop: 11/03/17 08:01 Lisinopril (Prinivil) 10 mg PO DAILY [facility] Last Admin: 10/30/17 07:32 Dose: 10 mg Advair 250/50 Diskus (, Own Med) 1 each INH DAILYRT [facility] Last Admin: 10/30/17 20:02 Dose: 1 each Ondansetron HCl (Zofran) 4 mg IV Q6H PRN PRN Reason: Nausea/Vomiting Prednisone (Prednisone) 20 mg PO DAILY [facility] Stop: 11/02/17 08:00 Last Admin: 10/30/17 07:31 Dose: 20 mg Temazepam (Restoril) 15 mg PO BEDTIME PRN PRN Reason: Sleep Labs: Laboratory Tests 10/29/17 10/29/17 Range/Units 08:25 08:25 WBC 10.7 H (5.0-10.0) 10^3/uL RBC 4.91 (4.00-5.50) 10^6/uL Hgb 16.1 H (12.0-16.0) g/dL Hct 49.7 H (37.0-47.0) % MCV 101.2 H (82.0-94.0) fL MCH 32.8 H (27.0-32.0) pg MCHC 32.4 L (33.0-38.0) g/dL RDW Coeff of Ed 13.0 (11.0-15.0) % Plt Count 248 (150-400) 10^3/uL Neut % (Auto) 70.0 (35-85) % Lymph % (Auto) 17.3 (10-55) % [place] % (Auto) 12.0 (0-16) % Eos % (Auto) 0.7 (0-5) % Baso % (Auto) 0 (0-3) % Neut # (Auto) 7.46 H (1.80-7.00) 10^3/uL Lymph # (Auto) 1.84 (1.00-4.80) 10^3/uL [place] # (Auto) 1.28 H (0.00-0.80) 10^3/uL Eos # (Auto) 0.07 (0.00-0.45) 10^3/uL Baso # (Auto) 0.00 10^3/uL Sodium 142 (136-145) mEq/L Potassium 4.0 (3.5-5.0) mEq/L Chloride 103 (98-106) mEq/L Carbon Dioxide 37 H (21-32) mmol/L BUN 31 H (7-18) mg/dL Creatinine 1.1 H (0.6-1.0) mg/dL Est Cr Clr Drug Dosing 36.55 mL/min Estimated GFR (MDRD) 48 L (>=60) mL/min Glucose 98 D (75-99) mg/dL Calcium 8.7 (8.4-10.1) mg/dL Total Bilirubin 0.9 (0.0-1.0) mg/dL AST 25 (15-37) U/L ALT 34 (12-78) U/L Alkaline Phosphatase 85 (46-116) U/L Total Protein 6.6 (6.4-8.2) g/dL Albumin 3.5 (3.4-5.0) g/dL Meds: Medications Generic Name Dose Route Start Last Admin Trade Name Freq PRN Reason Stop Dose Admin Acetaminophen 650 mg 10/29/17 09:46 Tylenol PO Q4H PRN Pain (Mild 1-3)/fever Hydrocodone Bitart/Acetaminophen 1 tab 10/29/17 09:46 [place] 325-5 Mg PO Q4H PRN Pain (moderate 4-6) Albuterol 0 gm 10/29/17 09:46 Ventolin Hfa INH QID PRN Shortness of Breath Albuterol/Ipratropium 3 ml 10/29/17 09:46 Duoneb 3.0-0.5 Mg/3 Ml INH QID PRN Dyspnea Albuterol/Ipratropium 3 ml 10/29/17 14:00 10/30/17 20:01 Duoneb 3.0-0.5 Mg/3 Ml NEB 3 ml TIDRT [facility] Administration Aspirin 81 mg 10/30/17 08:00 10/30/17 07:35 Halfprin PO 81 mg DAILY [facility] Administration Docusate Sodium 100 mg 10/29/17 09:46 Colace PO BID PRN Constipation Enoxaparin Sodium 40 mg 10/30/17 09:00 10/30/17 09:01 Lovenox SUBCUT 40 mg DAILY [facility] Administration Hydrochlorothiazide 25 mg 10/30/17 08:00 10/30/17 07:31 Hydrochlorothiazide PO 25 mg DAILY [facility] Administration Levofloxacin 500 mg 10/31/17 08:00 Levaquin PO 11/03/17 08:01 Q24H [facility] Lisinopril 10 mg 10/30/17 08:00 10/30/17 07:32 Prinivil PO 10 mg DAILY [facility] Administration Advair 250/50 Diskus 1 each 10/30/17 20:00 10/30/17 20:02 , Own Med INH 1 each DAILYRT [facility] Administration Ondansetron HCl 4 mg 10/29/17 09:46 Zofran IV Q6H PRN Nausea/Vomiting Prednisone 20 mg 10/30/17 08:00 10/30/17 07:31 Prednisone PO 11/02/17 08:00 20 mg DAILY [facility] Administration Temazepam 15 mg 10/29/17 09:46 Restoril PO BEDTIME PRN Sleep Discontinued Medications Generic Name Dose Route Start Last Admin Trade Name Freq PRN Reason Stop Dose Admin Enoxaparin Sodium 30 mg 10/29/17 09:46 10/29/17 11:03 Lovenox SUBCUT 30 mg Q24H [facility] Administration Sodium Chloride 1,000 mls @ 75 mls/hr 10/29/17 09:46 10/30/17 00:09 Normal Saline IV 75 mls/hr ASDIRECTED [facility] Administration Levofloxacin 500 mg 10/29/17 09:00 10/29/17 11:03 Levaquin PO 11/04/17 09:00 500 mg Q24H [facility] Administration Levofloxacin 500 mg 10/30/17 09:00 Levaquin PO 11/03/17 09:01 Q24H [facility] Levofloxacin 500 mg 10/30/17 09:00 10/30/17 09:01 Levaquin PO 10/30/17 09:01 500 mg DAILY [facility] Administration Advair 250/50 Mcg 0 each 10/29/17 20:00 10/30/17 07:33 Patients Own Med INH Not Given BIDRT [facility] - Radiology Interpretation Free Text/Narrative:: CXR: No acute findings from previous. Departure - Departure Time of Disposition: 09:05 Disposition: Refer to Observation Condition: Fair Clinical Impression: Renal insufficiency, Generalized weakness - Discharge Information - Assessment/Plan Plan: PLEASE SEE RN NOTE FOR PFSH. PLEASE USE ER H&P ADMIT H&P.
[2017-10-29] MEDS ORDERED: Albuterol/Ipratropium 3.0-0.5 MG/3 ML Neb Soln INH PRN (09:46)
[2017-10-29] MEDS ORDERED: Acetaminophen/HYDROcodone 325-5 MG Tab PO PRN (09:46)
[2017-10-29] MEDS ORDERED: Temazepam 15 MG Cap PO PRN (09:46)
[2017-10-29] MEDS ORDERED: Enoxaparin 30 MG/0.3 ML Syringe SUBCUT SCH (09:46)
[2017-10-29] MEDS ORDERED: Albuterol 8 GM Inhaler INH PRN (09:46)
[2017-10-29] MEDS ORDERED: Acetaminophen 325 MG Tab PO PRN (09:46)
[2017-10-29] MEDS ORDERED: Ondansetron 4 MG/2 ML SDV IV PRN (09:46)
[2017-10-29] MEDS ORDERED: Docusate Sodium 100 MG Cap PO PRN (09:46)
[2017-10-29] MEDS: Sodium Chloride 0.9% 1,000 ML IV SCH (11:03)
[2017-10-29] MEDS: Albuterol/Ipratropium 3.0-0.5 MG/3 ML Neb Soln NEB SCH ×2 (14:19→20:26)
[2017-10-29] MEDS ORDERED: Formoterol/Mometasone 200-5 MCG 8.8 GM Inhaler IH SCH (20:00)
[2017-10-29] MEDS: ADVAIR INH SCH (20:26)
[2017-10-30] MEDS: Sodium Chloride 0.9% 1,000 ML IV SCH (00:09)
[2017-10-30] MEDS: PREDNISONE 20 MG PO SCH (07:31)
[2017-10-30] MEDS: Hydrochlorothiazide 25 MG Tab **PTOM PO SCH (07:31)
[2017-10-30] MEDS: LISINOPRIL 10 MG PO SCH (07:32)
[2017-10-30] MEDS: ADVAIR INH SCH ×2 (07:33→20:02)
[2017-10-30] MEDS: Albuterol/Ipratropium 3.0-0.5 MG/3 ML Neb Soln NEB SCH ×3 (07:35→20:01)
[2017-10-30] MEDS: Aspirin 81 MG Tab.EC PO SCH (07:35)
[2017-10-30] MEDS ORDERED: Enoxaparin 30 MG/0.3 ML Syringe SUBCUT SCH (08:00)
[2017-10-30 08:14] LABS: CHLORIDE,CL 108 mEq/L (98-106); SODIUM,NA 142 mEq/L (136-145)
[2017-10-30] MEDS ORDERED: LEVOFLOXACIN 500 MG PO SCH ×2 (09:00)
[2017-10-30] MEDS: Enoxaparin 40 MG/0.4 ML Syringe SUBCUT SCH (09:01)
--- NOTE | 2017-10-30 11:13 | PCM.PN ---
- General Info Date of Service: 10/30/17 Functional Status: Reports: Pain Controlled, Tolerating Diet, Ambulating (With walker and some assistance.), Urinating, Other - Review of Systems General: Reports: No Symptoms HEENT: Reports: No Symptoms Pulmonary: Reports: No Symptoms Cardiovascular: Reports: No Symptoms Gastrointestinal: Reports: No Symptoms Genitourinary: Reports: No Symptoms Musculoskeletal: Reports: No Symptoms Skin: Reports: No Symptoms Neurological: Reports: No Symptoms Psychiatric: Reports: No Symptoms - Patient Data Vitals - Most Recent: Last Vital Signs Temp 97.5 F 10/30/17 07:42 Pulse 89 10/30/17 07:42 Resp 20 10/30/17 07:42 BP 133/55 L 10/30/17 07:42 Pulse Ox 97 10/30/17 07:42 Weight - Most Recent: 158 lb I&O - Last 24 Hours: Intake & Output 10/29/17 10/30/17 10/30/17 22:59 06:59 14:59 Intake Total 700 1183 Output Total 550 Balance 700 633 Lab Results Last 24 Hours: Laboratory Results - last 24 hr 10/30/17 10/30/17 10/30/17 Range/Units 04:22 08:00 08:00 WBC 7.4 (5.0-10.0) 10^3/uL RBC 4.17 (4.00-5.50) 10^6/uL Hgb 13.5 (12.0-16.0) g/dL Hct 42.4 (37.0-47.0) % MCV 101.7 H (82.0-94.0) fL MCH 32.4 H (27.0-32.0) pg MCHC 31.8 L (33.0-38.0) g/dL RDW Coeff of Ed 13.0 (11.0-15.0) % Plt Count 179 (150-400) 10^3/uL Neut % (Auto) 64.6 (35-85) % Lymph % (Auto) 23.8 (10-55) % [place] % (Auto) 10.2 (0-16) % Eos % (Auto) 1.4 (0-5) % Baso % (Auto) 0 (0-3) % Neut # (Auto) 4.77 (1.80-7.00) 10^3/uL Lymph # (Auto) 1.76 (1.00-4.80) 10^3/uL [place] # (Auto) 0.75 (0.00-0.80) 10^3/uL Eos # (Auto) 0.10 (0.00-0.45) 10^3/uL Baso # (Auto) 0.00 10^3/uL Sodium 142 (136-145) mEq/L Potassium 4.2 (3.5-5.0) mEq/L Chloride 108 H (98-106) mEq/L Carbon Dioxide 33 H (21-32) mmol/L BUN 24 H (7-18) mg/dL Creatinine 0.9 (0.6-1.0) mg/dL Est Cr Clr Drug Dosing 44.68 mL/min Estimated GFR (MDRD) > 60 (>=60) mL/min Glucose 98 (75-99) mg/dL Calcium 8.0 L (8.4-10.1) mg/dL C-Reactive Protein < 0.2 L (0.2-0.8) mg/dL Urine Color Yellow (YELLOW) Urine Appearance Clear (CLEAR) Urine pH 5.5 (4.5-8.0) Ur Specific [place] 1.020 (1.003-1.020) Urine Protein Negative (NEGATIVE) mg/dL Urine Glucose (UA) Negative (NEGATIVE) mg/dL Urine Ketones Negative (NEGATIVE) mg/dL Urine Occult Blood Negative (NEGATIVE) Urine Nitrite Negative (NEGATIVE) Urine Bilirubin Negative (NEGATIVE) Urine Urobilinogen 0.2 (0.2-1.0) EU/dL Ur Leukocyte Esterase Negative (NEGATIVE) Urine RBC Not seen (0-5) /HPF Urine WBC 0-5 (0-5) /HPF Ur Squamous Epith Cells Few H (NOT SEEN) /HPF Urine Mucus Occasional H (NOT SEEN) /HPF Med Orders - Current: Current Medications Acetaminophen (Tylenol) 650 mg PO Q4H PRN PRN Reason: Pain (Mild 1-3)/fever Hydrocodone Bitart/Acetaminophen ([place] 325-5 Mg) 1 tab PO Q4H PRN PRN Reason: Pain (moderate 4-6) Albuterol (Ventolin Hfa) 0 gm INH QID PRN PRN Reason: Shortness of Breath Albuterol/Ipratropium (Duoneb 3.0-0.5 Mg/3 Ml) 3 ml INH QID PRN PRN Reason: Dyspnea Albuterol/Ipratropium (Duoneb 3.0-0.5 Mg/3 Ml) 3 ml NEB TIDRT [facility]S [facility] 234 BEDS AT [facility] Last Admin: 10/30/17 07:35 Dose: 3 ml Aspirin (Halfprin) 81 mg PO DAILY [facility] 234 BEDS AT [facility] Last Admin: 10/30/17 07:35 Dose: 81 mg Docusate Sodium (Colace) 100 mg PO BID PRN PRN Reason: Constipation Enoxaparin Sodium (Lovenox) 40 mg SUBCUT DAILY [facility] 234 BEDS AT [facility] Last Admin: 10/30/17 09:01 Dose: 40 mg Hydrochlorothiazide (Hydrochlorothiazide) 25 mg PO DAILY [facility]CLUDE 234 BEDS AT [facility] Last Admin: 10/30/17 07:31 Dose: 25 mg Sodium Chloride (Normal Saline) 1,000 mls @ 75 mls/hr IV ASDIRECTED COUNTS INCLUDE 234 BEDS AT THE [facility] Last Admin: 10/30/17 00:09 Dose: 75 mls/hr Levofloxacin (Levaquin) 500 mg PO Q24H [facility]S INCLUDE 234 BEDS AT [facility] Stop: 11/03/17 08:01 Lisinopril (Prinivil) 10 mg PO DAILY [facility]CLUDE 234 BEDS AT [facility] Last Admin: 10/30/17 07:32 Dose: 10 mg Advair 250/50 Diskus (, Own Med) 1 each INH DAILYRT COUNTS INCLUDE 234 BEDS AT [facility] Ondansetron HCl (Zofran) 4 mg IV Q6H PRN PRN Reason: Nausea/Vomiting Prednisone (Prednisone) 20 mg PO DAILY [facility] 234 BEDS AT [facility] Stop: 11/02/17 08:00 Last Admin: 10/30/17 07:31 Dose: 20 mg Temazepam (Restoril) 15 mg PO BEDTIME PRN PRN Reason: Sleep Discontinued Medications Enoxaparin Sodium (Lovenox) 30 mg SUBCUT Q24H [facility]S INCLUDE 234 BEDS AT [facility] Last Admin: 10/29/17 11:03 Dose: 30 mg Levofloxacin (Levaquin) 500 mg PO Q24H [facility]S INCLUDE 234 BEDS AT [facility] Stop: 11/04/17 09:00 Last Admin: 10/29/17 11:03 Dose: 500 mg Levofloxacin (Levaquin) 500 mg PO Q24H [facility]S INCLUDE 234 BEDS AT [facility] Stop: 11/03/17 09:01 Levofloxacin (Levaquin) 500 mg PO DAILY [facility]CLUDE 234 BEDS AT [facility] Stop: 10/30/17 09:01 Last Admin: 10/30/17 09:01 Dose: 500 mg Advair 250/50 Mcg (Patients Own Med) 0 each INH BIDRT [facility] Last Admin: 10/30/17 07:33 Dose: Not Given - Exam General: Alert, Oriented, Cooperative, No Acute Distress HEENT: Pupils Equal, Pupils Reactive, Mucous Membr. Moist/[place] Neck: Supple, Trachea Midline, No JVD Lungs: Clear to Auscultation, Normal Respiratory Effort Cardiovascular: Regular Rate, Regular Rhythm, No Murmurs GI/Abdominal Exam: Soft, Non-Tender, No Organomegaly, No Distention, No Mass, Pelvis Stable Back Exam: Normal Inspection, Full Range of Motion Extremities: Normal Inspection, Normal Range of Motion, Non-Tender, No Pedal Edema, Normal Capillary Refill Peripheral Pulses: 2+: Radial (L), Radial (R), Posterior Tibial (L), Posterior Tibial (R), Dorsalis Pedis (L), Dorsalis Pedis (R) Skin: Warm, Dry, Intact Neurological: No New Focal Deficit Psy/Mental Status: Alert, Normal Affect, Normal Mood - Problem List Review Problem List Initiated/Reviewed/Updated: Yes - My Orders Last 24 Hours: My Active Orders 10/29/17 14:00 Albuterol/Ipratropium [DuoNeb 3.0-0.5 MG/3 ML] 3 ml NEB TIDRT 10/29/17 Lunch 2 Gram Sodium Diet [DIET] 10/30/17 08:00 Aspirin [Halfprin] 81 mg PO DAILY Hydrochlorothiazide 25 mg PO DAILY Lisinopril [Prinivil] 10 mg PO DAILY predniSONE 20 mg PO DAILY 10/30/17 09:00 Enoxaparin [Lovenox] 40 mg SUBCUT DAILY 10/30/17 20:00 Non-Formulary Medication [NF Drug] 1 each INH DAILYRT 10/31/17 05:00 BASIC METABOLIC PANEL,BMP [CHEM] DAILY C-REACTIVE PROTEIN [CHEM] DAILY CBC WITH AUTO DIFF [HEME] DAILY 10/31/17 08:00 Levofloxacin [Levaquin] 500 mg PO Q24H 11/01/17 05:00 BASIC METABOLIC PANEL,BMP [CHEM] DAILY C-REACTIVE PROTEIN [CHEM] DAILY CBC WITH AUTO DIFF [HEME] DAILY - Plan Plan:: I will continue to admit this patient. I would like her PCP to see her with possible vp digital marketing social media and crm. I do not feel this patient can safely go home. She reports she has limited helpful resources at home. I did discuss with the patient possibility other options such as home health, or placement, she said she would like to discuss this with her PCP Tuesday. She did require assistance here today with transferring and some ADLs.
[2017-10-31 07:31] LABS: CHLORIDE,CL 105 mEq/L (98-106); SODIUM,NA 141 mEq/L (136-145)
[2017-10-31] MEDS ORDERED: LEVOFLOXACIN 500 MG PO SCH (08:00)
[2017-10-31 08:14] VITALS: BP 137/63
[2017-10-31] MEDS: Hydrochlorothiazide 25 MG Tab **PTOM PO SCH (08:24)
[2017-10-31] MEDS: ADVAIR INH SCH ×2 (08:25→08:32)
[2017-10-31] MEDS: PREDNISONE 20 MG PO SCH (08:27)
[2017-10-31] MEDS: LISINOPRIL 10 MG PO SCH (08:28)
[2017-10-31] MEDS: Enoxaparin 40 MG/0.4 ML Syringe SUBCUT SCH (08:32)
[2017-10-31] MEDS: Aspirin 81 MG Tab.EC PO SCH (08:33)
[2017-10-31] MEDS: Albuterol/Ipratropium 3.0-0.5 MG/3 ML Neb Soln NEB SCH (08:33)
--- NOTE | 2017-10-31 10:56 | PCM.DCSUM1 ---
Discharge Summary - Hospital Course Free Text/Narrative:: Patient returned to ER on Tuesday per EMS due to increased weakness. Was in the hospital for 4 days for COPD exacerbation, was up and walking around her and discharged home on . [place] that over the last 24 hours, was getting weaker again. Patient was on the toilet and sat there for an hour as she was unable to get up on her home and her did not hear her hollering for help. Patient states it felt like her legs wouldn't hold her due to weakness. She typically ambulates about the home with a walker. [place] she was too weak to take care of herself so was admitted to hospital again. Chest xray did not show changes. Labs stable. - Discharge Data Discharge Date: 10/31/17 Discharge Disposition: Home, Self-Care 01 Condition: Fair - Patient Summary/Data Complications: none Hospital Course: Patient has done well during observation stay. Lungs are much improved. Has continued on her oral Levaquin and prednisone as well as nebs. Is now up and ambulating again in the room with her walker. Feels stronger. Has no concerns today. Does agree to home health services. Will have physical therapy for strengthening, nursing to monitor her lungs and oxygen sats due to recent exacerbation of COPD, services such as bathing and ADLs as needed. Patient unable to travel to PT due to weakness and 's own medical conditions. Dr. De Leon to oversee her care. - Patient Instructions Diet: Usual Diet as Tolerated Activity: As Tolerated - Discharge Plan Home Medications: Home Meds Albuterol [Proair HFA] 2 puff INH QID PRN 02/04/14 [History] Hydrochlorothiazide 25 mg PO DAILY 02/04/14 [History] Lisinopril [Zestril] 10 mg PO DAILY 02/04/14 [History] Aspirin [Adult Low Dose Aspirin EC] 81 mg PO DAILY #30 tablet. 12/12/14 [Rx] Albuterol/Ipratropium [DuoNeb 3.0-0.5 MG/3 ML] 1 ampule INH QID PRN 10/23/17 [ History] Fluticasone/Salmeterol [Advair 250-50 Diskus] 1 puff INH BEDTIME 10/23/17 [ History] Levofloxacin [Levaquin] 500 mg PO Q24H #7 tablet 10/27/17 [Rx] predniSONE [Prednisone] 20 mg PO DAILY #5 tablet 10/27/17 [Rx] Forms: ED Department Discharge Referrals: [facility] [Outside] [place] Rico PA-C [Primary Care Provider] - - Discharge Summary/Plan Comment DC Time >30 min.: No Discharge Summary/Plan Comment: Discharge home with home health services. Finish out course of Levaquin and prednisone, continue nebs QID and as needed. - General Info Date of Service: 10/31/17 Admission Dx/Problem (Free Text: Weakness Functional Status: Reports: Pain Controlled, Tolerating Diet, Ambulating - Review of Systems General: Reports: Weakness, Fatigue. Denies: Fever HEENT: Reports: No Symptoms Pulmonary: Reports: Shortness of Breath. Denies: Cough, Sputum Cardiovascular: Denies: Chest Pain, Edema, Lightheadedness Gastrointestinal: Denies: Abdominal Pain, Nausea, Vomiting Genitourinary: Reports: No Symptoms Musculoskeletal: Reports: No Symptoms Skin: Reports: No Symptoms Neurological: Reports: Weakness - Patient Data Vitals - Most Recent: Last Vital Signs Temp 96.8 F 10/31/17 08:00 Pulse 83 10/31/17 08:00 Resp 16 10/31/17 08:00 BP 137/63 10/31/17 08:28 Pulse Ox 98 10/31/17 08:00 Weight - Most Recent: 158 lb I&O - Last 24 hours: Intake & Output 10/30/17 10/31/17 10/31/17 22:59 06:59 14:59 Intake Total 2450 250 Output Total 1100 950 500 Balance 1350 -700 -500 Lab Results - Last 24 hrs: Laboratory Results - last 24 hr 10/31/17 10/31/17 Range/Units 06:55 06:55 WBC 7.2 (5.0-10.0) 10^3/uL RBC 3.95 L (4.00-5.50) 10^6/uL Hgb 13.3 (12.0-16.0) g/dL Hct 39.4 (37.0-47.0) % MCV 99.7 H (82.0-94.0) fL MCH 33.7 H (27.0-32.0) pg MCHC 33.8 (33.0-38.0) g/dL RDW Coeff of Ed 12.8 (11.0-15.0) % Plt Count 178 (150-400) 10^3/uL Neut % (Auto) 57.5 (35-85) % Lymph % (Auto) 28.9 (10-55) % [place] % (Auto) 11.6 (0-16) % Eos % (Auto) 2.0 (0-5) % Baso % (Auto) 0 (0-3) % Neut # (Auto) 4.12 (1.80-7.00) 10^3/uL Lymph # (Auto) 2.07 (1.00-4.80) 10^3/uL [place] # (Auto) 0.83 H (0.00-0.80) 10^3/uL Eos # (Auto) 0.14 (0.00-0.45) 10^3/uL Baso # (Auto) 0.00 10^3/uL Sodium 141 (136-145) mEq/L Potassium 4.3 (3.5-5.0) mEq/L Chloride 105 (98-106) mEq/L Carbon Dioxide 33 H (21-32) mmol/L BUN 17 (7-18) mg/dL Creatinine 0.7 (0.6-1.0) mg/dL Est Cr Clr Drug Dosing 57.44 mL/min Estimated GFR (MDRD) > 60 (>=60) mL/min Glucose 93 (75-99) mg/dL Calcium 8.4 (8.4-10.1) mg/dL C-Reactive Protein < 0.2 L (0.2-0.8) mg/dL Med Orders - Current: Current Medications Acetaminophen (Tylenol) 650 mg PO Q4H PRN PRN Reason: Pain (Mild 1-3)/fever Hydrocodone Bitart/Acetaminophen ([place] 325-5 Mg) 1 tab PO Q4H PRN PRN Reason: Pain (moderate 4-6) Albuterol (Ventolin Hfa) 0 gm INH QID PRN PRN Reason: Shortness of Breath Albuterol/Ipratropium (Duoneb 3.0-0.5 Mg/3 Ml) 3 ml INH QID PRN PRN Reason: Dyspnea Albuterol/Ipratropium (Duoneb 3.0-0.5 Mg/3 Ml) 3 ml NEB TIDRT [facility] Last Admin: 10/31/17 08:33 Dose: 3 ml Aspirin (Halfprin) 81 mg PO DAILY [facility] Last Admin: 10/31/17 08:33 Dose: 81 mg Docusate Sodium (Colace) 100 mg PO BID PRN PRN Reason: Constipation Enoxaparin Sodium (Lovenox) 40 mg SUBCUT DAILY [facility] Last Admin: 10/31/17 08:32 Dose: 40 mg Hydrochlorothiazide (Hydrochlorothiazide) 25 mg PO DAILY [facility] Last Admin: 10/31/17 08:24 Dose: 25 mg Levofloxacin (Levaquin) 500 mg PO Q24H [facility] Stop: 11/03/17 08:01 Last Admin: 10/31/17 08:24 Dose: 500 mg Lisinopril (Prinivil) 10 mg PO DAILY [facility] Last Admin: 10/31/17 08:28 Dose: 10 mg Advair 250/50 Diskus (, Own Med) 1 each INH DAILYRT [facility] Last Admin: 10/31/17 08:32 Dose: Not Given Ondansetron HCl (Zofran) 4 mg IV Q6H PRN PRN Reason: Nausea/Vomiting Prednisone (Prednisone) 20 mg PO DAILY [facility] Stop: 11/02/17 08:00 Last Admin: 10/31/17 08:27 Dose: 20 mg Temazepam (Restoril) 15 mg PO BEDTIME PRN PRN Reason: Sleep Discontinued Medications Enoxaparin Sodium (Lovenox) 30 mg SUBCUT Q24H [facility] Last Admin: 10/29/17 11:03 Dose: 30 mg Sodium Chloride (Normal Saline) 1,000 mls @ 75 mls/hr IV ASDIRECTED [facility] Last Admin: 10/30/17 00:09 Dose: 75 mls/hr Levofloxacin (Levaquin) 500 mg PO Q24H [facility] Stop: 11/04/17 09:00 Last Admin: 10/29/17 11:03 Dose: 500 mg Levofloxacin (Levaquin) 500 mg PO Q24H [facility] Stop: 11/03/17 09:01 Levofloxacin (Levaquin) 500 mg PO DAILY [facility] Stop: 10/30/17 09:01 Last Admin: 10/30/17 09:01 Dose: 500 mg Advair 250/50 Mcg (Patients Own Med) 0 each INH BIDRT [facility] Last Admin: 10/30/17 07:33 Dose: Not Given - Exam General: Reports: Alert, Oriented HEENT: Reports: Mucous Membr. Moist/[place] Neck: Reports: Supple Lungs: Reports: Clear to Auscultation, Normal Respiratory Effort Cardiovascular: Reports: Regular Rate, Regular Rhythm GI/Abdominal Exam: Normal Bowel Sounds, Soft, Non-Tender Extremities: Normal Inspection, No Pedal Edema Skin: Reports: Warm, Dry Neurological: Reports: No New Focal Deficit *Q Meaningful Use (DIS) - VTE *Q VTE Criteria *Q: - Stroke *Q Stroke Criteria *Q: - AMI *Q AMI Criteria *Q:
== END 2017-10-31 12:30 | disposition home or self-care (01) ==
LOC: CC.ED 08:00 → UNDOADMOB 09:30 → CC.MS 09:30
PROVIDERS: ADMIT Nurse Practitioner; ATTEND Family Medicine
DX: R53.1 Weakness (principal); J44.9 Chronic obstructive pulmonary disease, unspecified; Z79.82 Long term (current) use of aspirin; Z79.51 Long term (current) use of inhaled steroids; Z79.899 Other long term (current) drug therapy; Z88.8 Allergy status to other drugs, medicaments and biological substances; Z88.5 Allergy status to narcotic agent
CPT/HCPCS: 36415; 71020; 80048; 80053; 81001; 85025; 86140; 93005; 94640; 96360; 96361; 96372; 99285; A9270; G0378; J1650; J7030; 93010; 99217; 99220; 99225

== ENCOUNTER 2018-12-28 19:45 | Emergency (ER) | payer MEDICARE, OTHER ==
[2018-12-28 20:20] VITALS: BP 131/67
[2018-12-28 20:20] LABS: CHLORIDE,CL 104 mEq/L (98-106); SODIUM,NA 143 mEq/L (136-145)
--- NOTE | 2018-12-28 20:26 | EDM.PDOC ---
ED HPI GENERAL MEDICAL PROBLEM - General Chief Complaint: Neurological Problem Stated Complaint: facial numbness Time Seen by Provider: 12/28/18 20:02 Source of Information: Reports: Patient History Limitations: Reports: No Limitations - History of Present Illness INITIAL COMMENTS - FREE TEXT/NARRATIVE: Queenie is a pleasant 78 year old female who presents to the ED via EMS with c/ o posterior headache and numbness to the right side of her face. She reports onset 2 hours ago at about 1800. She is alert and oriented at time of presentation. GCS 15. NIH 1. Has weakness to RUE. Also has no movement of LLE, but this is baseline. She reports that upon ED presentation posterior headache has resolved. She does report right sided neck pain. Has full ROM of neck. She does have history of MS. Does not doctor regularly. She denies any other symptoms. Onset: Today, Sudden Onset Date: 12/28/18 Onset Time: 18:00 Duration: Constant Location: Reports: Face (right sided numbness), Neck (right), Upper Extremity, Right Associated Symptoms: Denies: Confusion, Chest Pain, Cough, cough w sputum, Diaphoresis, Fever/Chills, Headaches, Loss of Appetite, Malaise, Nausea/Vomiting , Rash, Seizure, Shortness of Breath, Syncope, Weakness Posterior Head Pain Score (Numeric/FACES): 5 - Related Data Allergies Allergy/AdvReac Type Severity Reaction Status Date / Time meperidine HCl [From Demerol] Allergy Hives Verified 12/28/18 20:16 montelukast sodium Allergy Hives Verified 12/28/18 20:16 [From Singulair] Home Meds: Home Meds Albuterol [Proair HFA] 2 puff INH QID PRN 02/04/14 [History] hydroCHLOROthiazide [Hydrochlorothiazide] 25 mg PO DAILY 02/04/14 [History] Aspirin [Adult Low Dose Aspirin EC] 81 mg PO DAILY #30 tablet. 12/12/14 [Rx] Albuterol/Ipratropium [DuoNeb 3.0-0.5 MG/3 ML] 1 ampule INH QID PRN 10/23/17 [ History] Fluticasone/Salmeterol [Advair 250-50 Diskus] 1 puff INH BEDTIME 10/23/17 [ History] Lisinopril/Hydrochlorothiazide [Lisinopril-Hctz 20-25 mg Tab] 1 tab PO DAILY 06/08 [History] Past Medical History Respiratory History: Reports: Asthma, COPD Musculoskeletal History: Reports: Other (See Below) Other Musculoskeletal History: MS Social & Family History - Family History Family Medical History: Noncontributory - Caffeine Use Caffeine Use: Reports: None - Living Situation & Occupation Living situation: Reports: Occupation: Retired ED ROS GENERAL - Review of Systems Review Of Systems: ROS reveals no pertinent complaints other than HPI. ED EXAM, NEURO - Physical Exam Exam: See Below Exam Limited By: No Limitations General Appearance: Alert, WD/WN, No Apparent Distress Eye Exam: Bilateral Eye: EOMI, Normal Fundi, Normal Inspection, PERRL Nose: Normal Inspection, Normal Mucosa, No Blood Throat/Mouth: Normal Inspection, Normal Lips, Normal Teeth, Normal Gums, Normal Oropharynx, Normal Voice, No Airway Compromise Head Exam: Atraumatic, Normocephalic. No: Facial Swelling, Facial Tenderness, Sinus Tenderness Neck: Normal Inspection, Supple, Full Range of Motion, Tender Lateral (right) Respiratory/Chest: No Respiratory Distress, Lungs Clear, Normal Breath Sounds, No Accessory Muscle Use, Chest Non-Tender Cardiovascular: Normal Peripheral Pulses, Regular Rate, Rhythm, No Edema, No Gallop, No JVD, No Murmur, No Rub GI/Abdominal: Normal Bowel Sounds, Soft, Non-Tender, No Organomegaly, No Distention, No Abnormal Bruit, No Mass Neurological: Alert, Normal Mood/Affect, Normal Dorsiflexion (right, unable on left-baseline), CN II-XII Intact, Normal Plantar Flexion (right, unable on left - baseline), No Motor/Sensory Deficits, Oriented x 3, Difficulty Walking ( unsteady, baseline, hx MS, uses FWW) Extremities: Normal Inspection, Normal Range of Motion, Non-Tender, No Pedal Edema, Normal Capillary Refill Psychiatric: Normal Affect, Normal Mood Course - Vital Signs Last Recorded V/S: Last Vital Signs Temp 97.2 F 12/28/18 19:48 Pulse 82 12/28/18 20:05 Resp 18 12/28/18 19:48 BP 131/67 12/28/18 20:05 Pulse Ox 95 12/28/18 20:05 - Orders/Labs/Meds Orders: Active Orders 24 hr Category Date Time Status Cervical Spine wo Cont [CT] Routine Exams 12/28/18 Taken Head wo Cont [CT] Stat Exams 12/28/18 19:44 Taken Labs: Laboratory Tests 12/28/18 12/28/18 12/28/18 Range/Units 20:01 20:01 20:01 WBC 6.6 (5.0-10.0) 10^3/uL RBC 3.83 L (4.00-5.50) 10^6/uL Hgb 13.3 (12.0-16.0) g/dL Hct 38.9 (37.0-47.0) % MCV 101.6 H (82.0-94.0) fL MCH 34.7 H (27.0-32.0) pg MCHC 34.2 (33.0-38.0) g/dL RDW Coeff of Ed 12.2 (11.0-15.0) % Plt Count 210 (150-400) 10^3/uL Neut % (Auto) 64.3 (35-85) % Lymph % (Auto) 22.3 (10-55) % [place] % (Auto) 10.8 (0-16) % Eos % (Auto) 2.4 (0-5) % Baso % (Auto) 0.2 (0-3) % Neut # (Auto) 4.23 (1.80-7.00) 10^3/uL Lymph # (Auto) 1.47 (1.00-4.80) 10^3/uL [place] # (Auto) 0.71 (0.00-0.80) 10^3/uL Eos # (Auto) 0.16 (0.00-0.45) 10^3/uL Baso # (Auto) 0.01 10^3/uL PT 9.6 L (9.7-12.3) SEC INR 0.92 (0.92-1.18) APTT 24.3 (23.2-32.3) SEC Sodium 143 (136-145) mEq/L Potassium 3.8 (3.5-5.0) mEq/L Chloride 104 (98-106) mEq/L Carbon Dioxide 34 H (21-32) mmol/L BUN 26 H D (7-18) mg/dL Creatinine 0.7 (0.6-1.0) mg/dL Est Cr Clr Drug Dosing 56.56 mL/min Estimated GFR (MDRD) > 60 (>=60) mL/min Glucose 104 H (75-99) mg/dL Calcium 8.6 (8.4-10.1) mg/dL Creatine Kinase 36 (21-215) U/L Troponin I < 0.017 (0.00-0.06) ng/mL Urine Color (YELLOW) Urine Appearance (CLEAR) Urine pH (4.5-8.0) Ur Specific [place] (1.003-1.020) Urine Protein (NEGATIVE) mg/dL Urine Glucose (UA) (NEGATIVE) mg/dL Urine Ketones (NEGATIVE) mg/dL Urine Occult Blood (NEGATIVE) Urine Nitrite (NEGATIVE) Urine Bilirubin (NEGATIVE) Urine Urobilinogen (0.2-1.0) EU/dL Ur Leukocyte Esterase (NEGATIVE) Urine RBC (0-5) /HPF Urine WBC (0-5) /HPF Ur Epithelial Cells (NOT SEEN) /HPF 12/28/18 Range/Units 20:45 WBC (5.0-10.0) 10^3/uL RBC (4.00-5.50) 10^6/uL Hgb (12.0-16.0) g/dL Hct (37.0-47.0) % MCV (82.0-94.0) fL MCH (27.0-32.0) pg MCHC (33.0-38.0) g/dL RDW Coeff of Ed (11.0-15.0) % Plt Count (150-400) 10^3/uL Neut % (Auto) (35-85) % Lymph % (Auto) (10-55) % [place] % (Auto) (0-16) % Eos % (Auto) (0-5) % Baso % (Auto) (0-3) % Neut # (Auto) (1.80-7.00) 10^3/uL Lymph # (Auto) (1.00-4.80) 10^3/uL [place] # (Auto) (0.00-0.80) 10^3/uL Eos # (Auto) (0.00-0.45) 10^3/uL Baso # (Auto) 10^3/uL PT (9.7-12.3) SEC INR (0.92-1.18) APTT (23.2-32.3) SEC Sodium (136-145) mEq/L Potassium (3.5-5.0) mEq/L Chloride (98-106) mEq/L Carbon Dioxide (21-32) mmol/L BUN (7-18) mg/dL Creatinine (0.6-1.0) mg/dL Est Cr Clr Drug Dosing mL/min Estimated GFR (MDRD) (>=60) mL/min Glucose (75-99) mg/dL Calcium (8.4-10.1) mg/dL Creatine Kinase (21-215) U/L Troponin I (0.00-0.06) ng/mL Urine Color Yellow (YELLOW) Urine Appearance Clear (CLEAR) Urine pH 5.5 (4.5-8.0) Ur Specific [place] 1.020 (1.003-1.020) Urine Protein Negative (NEGATIVE) mg/dL Urine Glucose (UA) Negative (NEGATIVE) mg/dL Urine Ketones Negative (NEGATIVE) mg/dL Urine Occult Blood Negative (NEGATIVE) Urine Nitrite Negative (NEGATIVE) Urine Bilirubin Negative (NEGATIVE) Urine Urobilinogen 1.0 (0.2-1.0) EU/dL Ur Leukocyte Esterase Trace H (NEGATIVE) Urine RBC 0-5 (0-5) /HPF Urine WBC 0-5 (0-5) /HPF Ur Epithelial Cells Few H (NOT SEEN) /HPF - Radiology Interpretation Free Text/Narrative:: Negative Head CT. CT Results Date: 12/28/18 CT Results Time: 20:26 - Re-Assessments/Exams Free Text/Narrative Re-Assessment/Exam: 12/28/18 20:[address] shows degenerative changes, but nothing acute. Discussed normal head and neck CT and normal lab work with patient. Patient will be discharged home with recommended f/u with PCP if symptoms persist or worsen. Patent verbalized understanding and was agreeable with discharge. No TPA indicated as patient is not having CVA. Departure - Departure Time of Disposition: 20:58 Disposition: Home, Self-Care 01 Condition: Good Clinical Impression: Multiple sclerosis, Right facial numbness Degenerative arthritis of cervical spine Qualifiers: Spinal osteoarthritis complication: other spinal osteoarthritis Qualified Code( s): M47.892 - Other spondylosis, cervical region - Discharge Information *PRESCRIPTION DRUG MONITORING PROGRAM REVIEWED*: Not Applicable *COPY OF PRESCRIPTION DRUG MONITORING REPORT IN PATIENT PHUONG: Not Applicable Instructions: Multiple Sclerosis Forms: ED Department Discharge Additional Instructions: 1) Alternate ice/heat to neck as needed for comfort 2) Tylenol as needed for pain 3) Follow up with PCP for recheck if symptoms worsen or do not improve 4) Return to ED for any emergent needs - My Orders Last 24 Hours: My Active Orders 12/28/18 Cervical Spine wo Cont [CT] Routine 12/28/18 19:44 Head wo Cont [CT] Stat - Assessment/Plan Last 24 Hours: My Active Orders 12/28/18 Cervical Spine wo Cont [CT] Routine 12/28/18 19:44 Head wo Cont [CT] Stat
== END 2018-12-28 21:07 | disposition home or self-care (01) ==
LOC: CC.ED 19:45
DX: G35 Multiple sclerosis (principal); M47.892 Other spondylosis, cervical region; J45.909 Unspecified asthma, uncomplicated; Z79.82 Long term (current) use of aspirin; Z79.899 Other long term (current) drug therapy; Z88.5 Allergy status to narcotic agent; Z88.8 Allergy status to other drugs, medicaments and biological substances
CPT/HCPCS: 36415; 70450; 72125; 80048; 81001; 82550; 84484; 85025; 85610; 85730; 99284

== ENCOUNTER 2019-02-01 09:37 | Inpatient (IN) | payer MEDICARE, OTHER ==
[2019-02-01 10:26] LABS: CHLORIDE,CL 107 mEq/L (98-106); SODIUM,NA 143 mEq/L (136-145)
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
[2019-02-01] MEDS ORDERED: Acetaminophen 325 MG Tab PO PRN (11:21)
[2019-02-01] MEDS ORDERED: Albuterol/Ipratropium 3.0-0.5 MG/3 ML Neb Soln INH PRN (11:21)
[2019-02-01] MEDS ORDERED: Magnesium Hydroxide 400 MG/5 ML Susp 30 ML Cup PO PRN (11:21)
[2019-02-01] MEDS: Sodium Chloride 0.9% 1,000 ML IV SCH (11:53)
[2019-02-01] MEDS: methylPREDNISolone Sodium Succinate 125 MG/2 ML SDV IVPUSH SCH ×2 (11:53→22:59)
[2019-02-01] MEDS: Enoxaparin 40 MG/0.4 ML Syringe SUBCUT SCH (11:53)
[2019-02-01] MEDS: Formoterol/Mometasone 200-5 MCG 8.8 GM Inhaler IH SCH (19:41)
[2019-02-02] MEDS: Sodium Chloride 0.9% 1,000 ML IV SCH ×2 (01:02→14:25)
[2019-02-02] MEDS: Aspirin 81 MG Tab.EC PO SCH (07:33)
[2019-02-02] MEDS: Lisinopril 20 MG Tab PO SCH (07:33)
[2019-02-02] MEDS: Hydrochlorothiazide 25 MG Tab PO SCH (07:33)
[2019-02-02] MEDS ORDERED: Hydrochlorothiazide 25 MG Tab PO SCH ×2 (08:00)
[2019-02-02 08:01] LABS: CHLORIDE,CL 109 mEq/L (98-106); SODIUM,NA 146 mEq/L (136-145)
[2019-02-02] MEDS: Albuterol 8 GM Inhaler INH PRN ×2 (11:24→16:49)
[2019-02-02] MEDS: Enoxaparin 40 MG/0.4 ML Syringe SUBCUT SCH (11:25)
[2019-02-02] MEDS: methylPREDNISolone Sodium Succinate 125 MG/2 ML SDV IVPUSH SCH ×2 (11:25→22:41)
[2019-02-02] MEDS: Formoterol/Mometasone 200-5 MCG 8.8 GM Inhaler IH SCH (19:50)
--- NOTE | 2019-02-02 20:40 | PCM.PN ---
- General Info Date of Service: 02/02/19 Admission Dx/Problem (Free Text): COPD Exacerbation Functional Status: Reports: Pain Controlled, Tolerating Diet, Ambulating - Review of Systems General: Reports: Weakness, Fatigue, Malaise HEENT: Reports: No Symptoms Pulmonary: Reports: Shortness of Breath, Cough, Wheezing Cardiovascular: Denies: Chest Pain, Edema, Lightheadedness Gastrointestinal: Reports: No Symptoms Genitourinary: Reports: No Symptoms Musculoskeletal: Reports: No Symptoms Skin: Reports: No Symptoms Neurological: Reports: No Symptoms - Patient Data Vitals - Most Recent: Last Vital Signs Temp 97.4 F 02/02/19 14:00 Pulse 90 02/02/19 14:00 Resp 18 02/02/19 14:00 BP 132/57 L 02/02/19 14:00 Pulse Ox 97 02/02/19 14:00 Weight - Most Recent: 125 lb I&O - Last 24 Hours: Intake & Output 02/02/19 02/02/19 02/02/19 06:59 14:59 22:59 Intake Total 986 1000 Balance 986 1000 Lab Results Last 24 Hours: Laboratory Results - last 24 hr 02/02/19 02/02/19 Range/Units 05:11 07:25 WBC 6.8 (5.0-10.0) 10^3/uL RBC 3.72 L (4.00-5.50) 10^6/uL Hgb 12.6 (12.0-16.0) g/dL Hct 39.1 (37.0-47.0) % MCV 105.1 H (82.0-94.0) fL MCH 33.9 H (27.0-32.0) pg MCHC 32.2 L (33.0-38.0) g/dL RDW Coeff of Ed 12.7 (11.0-15.0) % Plt Count 173 (150-400) 10^3/uL Neut % (Auto) 93.9 H (35-85) % Lymph % (Auto) 3.5 L (10-55) % [place] % (Auto) 2.5 (0-16) % Eos % (Auto) 0 (0-5) % Baso % (Auto) 0.1 (0-3) % Neut # (Auto) 6.35 (1.80-7.00) 10^3/uL Lymph # (Auto) 0.24 L (1.00-4.80) 10^3/uL [place] # (Auto) 0.17 (0.00-0.80) 10^3/uL Eos # (Auto) 0.00 (0.00-0.45) 10^3/uL Baso # (Auto) 0.01 10^3/uL Sodium 146 H (136-145) mEq/L Potassium 3.9 (3.5-5.0) mEq/L Chloride 109 H (98-106) mEq/L Carbon Dioxide 29 (21-32) mmol/L BUN 9 (7-18) mg/dL Creatinine 0.6 (0.6-1.0) mg/dL Est Cr Clr Drug Dosing 65.98 mL/min Estimated GFR (MDRD) > 60 (>=60) mL/min Glucose 128 H D (75-99) mg/dL Calcium 9.0 (8.4-10.1) mg/dL C-Reactive Protein 3.6 H (0.2-0.8) mg/dL Med Orders - Current: Current Medications Acetaminophen (Tylenol) 650 mg PO Q4H PRN PRN Reason: Pain (Mild 1-3)/fever Albuterol (Ventolin Hfa) 0 gm INH QID PRN PRN Reason: Shortness of Breath Last Admin: 02/02/19 16:49 Dose: 2 inhalation Albuterol/Ipratropium (Duoneb 3.0-0.5 Mg/3 Ml) 3 ml INH QID PRN PRN Reason: Dyspnea Aspirin (Halfprin) 81 mg PO DAILY [facility] Last Admin: 02/02/19 07:33 Dose: 81 mg Enoxaparin Sodium (Lovenox) 40 mg SUBCUT Q24H [facility] Last Admin: 02/02/19 11:25 Dose: 40 mg Hydrochlorothiazide (Hydrochlorothiazide) 25 mg PO DAILY [facility] Last Admin: 02/02/19 07:33 Dose: 25 mg Sodium Chloride (Normal Saline) 1,000 mls @ 75 mls/hr IV ASDIRECTED [facility] Last Admin: 02/02/19 14:25 Dose: 75 mls/hr Lisinopril (Prinivil) 20 mg PO DAILY [facility] Last Admin: 02/02/19 07:33 Dose: 20 mg Magnesium Hydroxide (Milk Of Magnesia) 30 ml PO Q12H PRN PRN Reason: Constipation Methylprednisolone Sodium Succinate (Solu-Medrol) 62.5 mg IVPUSH Q12H [facility] Last Admin: 02/02/19 11:25 Dose: 62.5 mg Mometasone Furoate/Formoterol Fumar (Dulera 200-5 Mcg) 0 puff IH BEDTIME [facility] Last Admin: 02/02/19 19:50 Dose: 2 puff Discontinued Medications Hydrochlorothiazide (Hydrochlorothiazide) 25 mg PO DAILY [facility] Hydrochlorothiazide (Hydrochlorothiazide) 25 mg PO DAILY [facility] Last Admin: 02/02/19 07:33 Dose: Not Given - Exam General: Alert, Oriented HEENT: Mucous Membr. Moist/[place] Neck: Supple Lungs: Clear to Auscultation, Decreased Breath Sounds Cardiovascular: Regular Rate, Regular Rhythm GI/Abdominal Exam: Normal Bowel Sounds, Soft, Non-Tender Extremities: Normal Inspection, No Pedal Edema Skin: Warm, Dry Neurological: No New Focal Deficit - Problem List & Annotations (1) COPD with acute exacerbation SNOMED Code(s): 938841638 Code(s): J44.1 - CHRONIC OBSTRUCTIVE PULMONARY DISEASE W (ACUTE) EXACERBATION Status: Chronic Priority: High Current Visit: Yes - Problem List Review Problem List Initiated/Reviewed/Updated: Yes - Assessment Assessment:: COPD Exacerbation - Plan Plan:: Patient doing well this am. States does still feel short of breath, wheezing at times. Frequent cough, nonproductive. She is ambulating short distances and tolerating well. Oxygen sats maintaining 94-97% on room air. Vital signs stable, afebrile. Lung sounds diminished but clear. Will continue with IV Solu Medrol and Nebulizer treatments. Probable discharge home tomorrow.
[2019-02-03] MEDS: Sodium Chloride 0.9% 1,000 ML IV SCH ×2 (03:41→16:59)
[2019-02-03] MEDS: Aspirin 81 MG Tab.EC PO SCH (07:32)
[2019-02-03] MEDS: Hydrochlorothiazide 25 MG Tab PO SCH (07:32)
[2019-02-03] MEDS: Lisinopril 20 MG Tab PO SCH (07:32)
--- NOTE | 2019-02-03 10:00 | PCM.PN ---
- General Info Date of Service: 02/03/19 Admission Dx/Problem (Free Text): COPD exacerbation Functional Status: Reports: Pain Controlled, Ambulating - Review of Systems General: Reports: No Symptoms HEENT: Reports: No Symptoms Pulmonary: Reports: Wheezing Cardiovascular: Reports: No Symptoms Gastrointestinal: Reports: No Symptoms Genitourinary: Reports: No Symptoms Musculoskeletal: Reports: No Symptoms Skin: Reports: No Symptoms Psychiatric: Reports: No Symptoms - Patient Data Vitals - Most Recent: Last Vital Signs Temp 97.5 F 02/03/19 08:00 Pulse 69 02/03/19 08:00 Resp 18 02/03/19 08:00 BP 154/60 H 02/03/19 08:00 Pulse Ox 97 02/03/19 08:00 Weight - Most Recent: 125 lb I&O - Last 24 Hours: Intake & Output 02/02/19 02/03/19 02/03/19 22:59 06:59 14:59 Intake Total 995 Balance 995 Med Orders - Current: Current Medications Acetaminophen (Tylenol) 650 mg PO Q4H PRN PRN Reason: Pain (Mild 1-3)/fever Albuterol (Ventolin Hfa) 0 gm INH QID PRN PRN Reason: Shortness of Breath Last Admin: 02/02/19 16:49 Dose: 2 inhalation Albuterol/Ipratropium (Duoneb 3.0-0.5 Mg/3 Ml) 3 ml INH QID PRN PRN Reason: Dyspnea Aspirin (Halfprin) 81 mg PO DAILY [facility] Last Admin: 02/03/19 07:32 Dose: 81 mg Enoxaparin Sodium (Lovenox) 40 mg SUBCUT Q24H [facility] Last Admin: 02/02/19 11:25 Dose: 40 mg Hydrochlorothiazide (Hydrochlorothiazide) 25 mg PO DAILY [facility] Last Admin: 02/03/19 07:32 Dose: 25 mg Sodium Chloride (Normal Saline) 1,000 mls @ 75 mls/hr IV ASDIRECTED [facility] Last Admin: 02/03/19 03:41 Dose: 75 mls/hr Lisinopril (Prinivil) 20 mg PO DAILY [facility] Last Admin: 02/03/19 07:32 Dose: 20 mg Magnesium Hydroxide (Milk Of Magnesia) 30 ml PO Q12H PRN PRN Reason: Constipation Methylprednisolone Sodium Succinate (Solu-Medrol) 62.5 mg IVPUSH Q12H [facility] Last Admin: 02/02/19 22:41 Dose: 62.5 mg Mometasone Furoate/Formoterol Fumar (Dulera 200-5 Mcg) 0 puff IH BEDTIME [facility] Last Admin: 02/02/19 19:50 Dose: 2 puff Discontinued Medications Hydrochlorothiazide (Hydrochlorothiazide) 25 mg PO DAILY [facility] Hydrochlorothiazide (Hydrochlorothiazide) 25 mg PO DAILY [facility] Last Admin: 02/02/19 07:33 Dose: Not Given - Exam Quality Assessment: DVT Prophylaxis General: Alert, Oriented HEENT: Pupils Equal, Pupils Reactive, EOMI, Mucous Membr. Moist/[place] Neck: Supple, No JVD Lungs: Normal Respiratory Effort, Decreased Breath Sounds, Wheezing (scattered wheezing) Cardiovascular: Regular Rate, Regular Rhythm GI/Abdominal Exam: Normal Bowel Sounds, Soft, Non-Tender Back Exam: Normal Inspection Extremities: Normal Range of Motion, Normal Capillary Refill, Pedal Edema (2+) Skin: Warm, Dry, Intact Neurological: No New Focal Deficit Psy/Mental Status: Alert, Normal Affect, Normal Mood - Problem List Review Problem List Initiated/Reviewed/Updated: Yes - Assessment Assessment:: COPD Exacerbation - Plan Plan:: Patient doing well this am. States does still feel short of breath, wheezing at times. Frequent cough, nonproductive. She is ambulating short distances and tolerating well. Oxygen sats maintaining 94-97% on room air. Vital signs stable, afebrile. Lung sounds diminished but clear. Will continue with IV Solu Medrol and Nebulizer treatments. Probable discharge home tomorrow. 02/03/2019 0958 Patient steadily improving. - Does have noted 2+ pedal edema which the nurse states was there yesterday- continues on diuretics. and patient tolerated ambulating this am well- she will continue steriorids and neb treatments and will be d/c tomorrow and she was agreeable to this plan.
[2019-02-03] MEDS: methylPREDNISolone Sodium Succinate 125 MG/2 ML SDV IVPUSH SCH ×2 (11:29→22:53)
[2019-02-03] MEDS: Enoxaparin 40 MG/0.4 ML Syringe SUBCUT SCH (11:29)
[2019-02-03] MEDS: Formoterol/Mometasone 200-5 MCG 8.8 GM Inhaler IH SCH (19:41)
[2019-02-04] MEDS: Hydrochlorothiazide 25 MG Tab PO SCH (07:35)
[2019-02-04] MEDS: Lisinopril 20 MG Tab PO SCH (07:36)
[2019-02-04] MEDS: Aspirin 81 MG Tab.EC PO SCH (07:36)
[2019-02-04 07:38] VITALS: BP 156/65
--- NOTE | 2019-02-04 11:39 | PCM.DCSUM1 ---
Discharge Summary - Hospital Course Free Text/Narrative:: Patient improved considerably ready to d/c home. HPI Initial Comments: patient came in 3 days ago with COPD exacerbation with wheezing and dyspna- which have resolved. Diagnosis: Stroke: No Modified Carline Scale: No Symptoms at All Modified Dwight Scale Score: 0 - Discharge Data Discharge Date: 02/04/19 Discharge Disposition: Home, Self-Care 01 Condition: Good - Discharge Diagnosis/Problem(s) (1) Acute exacerbation of chronic obstructive pulmonary disease (COPD) SNOMED Code(s): 466229452 ICD Code: J44.1 - CHRONIC OBSTRUCTIVE PULMONARY DISEASE W (ACUTE) EXACERBATION Status: Acute Current Visit: Yes - Patient Instructions Diet: Heart Healthy Diet Activity: As Tolerated Showering/Bathing: May Shower Notify Provider of: Fever, Swelling and Redness, Nausea and/or Vomiting - Discharge Plan *PRESCRIPTION DRUG MONITORING PROGRAM REVIEWED*: Not Applicable *COPY OF PRESCRIPTION DRUG MONITORING REPORT IN PATIENT PHUONG: Not Applicable Home Medications: Home Meds Albuterol [Proair HFA] 2 puff INH QID PRN 02/04/14 [History] Aspirin [Adult Low Dose Aspirin EC] 81 mg PO DAILY #30 tablet. 12/12/14 [Rx] Albuterol/Ipratropium [DuoNeb 3.0-0.5 MG/3 ML] 1 ampule INH QID PRN 10/23/17 [ History] Fluticasone/Salmeterol [Advair 250-50 Diskus] 1 puff INH BEDTIME 10/23/17 [ History] Lisinopril/Hydrochlorothiazide [Lisinopril-Hctz 20-25 mg Tab] 1 tab PO DAILY 06/08 [History] hydroCHLOROthiazide [Hydrochlorothiazide] 25 mg PO DAILY tablet 02/04/19 [Rx] Patient Handouts: Chronic Obstructive Pulmonary Disease Exacerbation Forms: ED Department Discharge Referrals: PCP,Unknown [Primary Care Provider] - - Discharge Summary/Plan Comment DC Time >30 min.: No Discharge Summary/Plan Comment: Continue meds for COPD / HTN and edema at home. See [place] in the clinic on Tuesday or for recheck. Return if worse. - General Info Date of Service: 02/04/19 Admission Dx/Problem (Free Text: COPD exacerbation Functional Status: Reports: Pain Controlled - Review of Systems General: Reports: No Symptoms HEENT: Reports: No Symptoms Pulmonary: Reports: No Symptoms Cardiovascular: Reports: No Symptoms Gastrointestinal: Reports: No Symptoms Skin: Reports: No Symptoms Neurological: Reports: No Symptoms Psychiatric: Reports: No Symptoms - Patient Data Vitals - Most Recent: Last Vital Signs Temp 97.9 F 02/04/19 08:00 Pulse 73 02/04/19 08:00 Resp 18 02/04/19 08:00 BP 156/65 H 02/04/19 08:00 Pulse Ox 96 02/04/19 08:00 Weight - Most Recent: 125 lb I&O - Last 24 hours: Intake & Output 02/03/19 02/04/19 02/04/19 22:59 06:59 14:59 Intake Total 998 Balance 998 Med Orders - Current: Current Medications Acetaminophen (Tylenol) 650 mg PO Q4H PRN PRN Reason: Pain (Mild 1-3)/fever Albuterol (Ventolin Hfa) 0 gm INH QID PRN PRN Reason: Shortness of Breath Last Admin: 02/02/19 16:49 Dose: 2 inhalation Albuterol/Ipratropium (Duoneb 3.0-0.5 Mg/3 Ml) 3 ml INH QID PRN PRN Reason: Dyspnea Aspirin (Halfprin) 81 mg PO DAILY [facility] Last Admin: 02/04/19 07:36 Dose: 81 mg Enoxaparin Sodium (Lovenox) 40 mg SUBCUT Q24H [facility] Last Admin: 02/03/19 11:29 Dose: 40 mg Hydrochlorothiazide (Hydrochlorothiazide) 25 mg PO DAILY [facility] Last Admin: 02/04/19 07:35 Dose: 25 mg Sodium Chloride (Normal Saline) 1,000 mls @ 75 mls/hr IV ASDIRECTED [facility] Last Admin: 02/03/19 16:59 Dose: 75 mls/hr Lisinopril (Prinivil) 20 mg PO DAILY [facility] Last Admin: 02/04/19 07:36 Dose: 20 mg Magnesium Hydroxide (Milk Of Magnesia) 30 ml PO Q12H PRN PRN Reason: Constipation Methylprednisolone Sodium Succinate (Solu-Medrol) 62.5 mg IVPUSH Q12H [facility] Last Admin: 02/03/19 22:53 Dose: 62.5 mg Mometasone Furoate/Formoterol Fumar (Dulera 200-5 Mcg) 0 puff IH BEDTIME [facility] Last Admin: 02/03/19 19:41 Dose: 2 puff Discontinued Medications Hydrochlorothiazide (Hydrochlorothiazide) 25 mg PO DAILY [facility] Hydrochlorothiazide (Hydrochlorothiazide) 25 mg PO DAILY [facility] Last Admin: 02/02/19 07:33 Dose: Not Given - Exam Quality Assessment: Denies: Supplemental Oxygen General: Reports: Alert, Oriented HEENT: Reports: Pupils Equal, Pupils Reactive, Mucous Membr. Moist/[place] Neck: Reports: Supple Lungs: Reports: Clear to Auscultation Cardiovascular: Reports: Regular Rate, Regular Rhythm GI/Abdominal Exam: Normal Bowel Sounds, Soft, Non-Tender Back Exam: Reports: Normal Inspection, Full Range of Motion Extremities: Normal Range of Motion, Pedal Edema (1+) Skin: Reports: Warm, Dry, Intact Neurological: Reports: No New Focal Deficit Psy/Mental Status: Reports: Alert, Normal Affect, Normal Mood
[2019-02-04] MEDS: Enoxaparin 40 MG/0.4 ML Syringe SUBCUT SCH (11:44)
[2019-02-04] MEDS: methylPREDNISolone Sodium Succinate 125 MG/2 ML SDV IVPUSH SCH (11:44)
== END 2019-02-04 13:13 | disposition home or self-care (01) | DRG 192 ==
LOC: CC.ED 09:37 → CC.MS 11:09 → UNDOADMIN 11:09 → CC.MS 11:16
PROVIDERS: ADMIT Physician Assistant Medical; ATTEND Family Medicine
DX: J44.1 Chronic obstructive pulmonary disease with (acute) exacerbation (principal); I10 Essential (primary) hypertension; G35 Multiple sclerosis; Z88.5 Allergy status to narcotic agent; Z88.8 Allergy status to other drugs, medicaments and biological substances; Z79.82 Long term (current) use of aspirin; Z79.899 Other long term (current) drug therapy
CPT/HCPCS: 36415; 71046; 80048; 82550; 84484; 85025; 86140; 87804; 93005; 94640; 99285-25; A9270-GY; J1650; J2930; J7030

== ENCOUNTER 2019-04-10 07:35 | Inpatient (IN) | payer MEDICARE, OTHER ==
[2019-04-10] MEDS ORDERED: Sodium Chloride 0.9% 1,000 ML ONE (08:16)
[2019-04-10] MEDS ORDERED: Sodium Chloride 0.9% 1,000 ML IV ONE (08:24)
--- NOTE | 2019-04-10 08:26 | EDM.PDOC ---
ED HPI GENERAL MEDICAL PROBLEM - General Chief Complaint: Gastrointestinal Problem Stated Complaint: N/V/D Time Seen by Provider: 04/10/19 08:18 Source of Information: Reports: Patient History Limitations: Reports: No Limitations - History of Present Illness INITIAL COMMENTS - FREE TEXT/NARRATIVE: Queenie is a 78 year old female who presents to the ED with family with c/o nausea, vomiting, and diarrhea. She reports all day yesterday she had a decreased appetite. Reports starting around 6 pm last evening she began vomiting and having diarrhea. Reports she has vomited 10+ times and had 10+ episodes of loose stool since then. She reports she feels very weak. Family concerned with her ability to care for herself at home given her weakness. She reports she has some upper/epigastric abdominal pain and generalized malaise. She denies any fever or urinary symptoms. Does report that 3 other family members have had the same symptoms, which lasted about 24 hours and then resolved, the past few days. Onset Date: 04/09/19 Onset Time: 18:00 Duration: Getting Worse Location: Reports: Abdomen Quality: Reports: Ache Severity: Mild Associated Symptoms: Reports: Fever/Chills, Loss of Appetite, Malaise, Nausea/ Vomiting, Weakness. Denies: Confusion, Chest Pain, Cough, cough w sputum, Diaphoresis, Headaches - Related Data Allergies Allergy/AdvReac Type Severity Reaction Status Date / Time meperidine HCl [From Demerol] Allergy Hives Verified 04/10/19 07:46 montelukast sodium Allergy Hives Verified 04/10/19 07:46 [From Singulair] Home Meds: Home Meds Albuterol [Proair HFA] 2 puff INH QID PRN 02/04/14 [History] Aspirin [Adult Low Dose Aspirin EC] 81 mg PO DAILY #30 tablet. 12/12/14 [Rx] Albuterol/Ipratropium [DuoNeb 3.0-0.5 MG/3 ML] 1 ampule INH QID PRN 10/23/17 [ History] Fluticasone/Salmeterol [Advair 250-50 Diskus] 1 puff INH BEDTIME 10/23/17 [ History] Lisinopril/Hydrochlorothiazide [Lisinopril-Hctz 20-25 mg Tab] 1 tab PO DAILY 06/08 [History] Past Medical History HEENT History: Reports: None Cardiovascular History: Reports: Hypertension Respiratory History: Reports: Asthma, COPD [employer] History: Reports: Musculoskeletal History: Reports: Other (See Below) Other Musculoskeletal History: MS Neurological History: Reports: MS - Infectious Disease History Infectious Disease History: Reports: Other (See Below) 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 Constitutional: Reports: Malaise, Weakness, Fatigue, Decreased Appetite. Denies : Fever HEENT: Reports: No Symptoms Respiratory: Denies: Shortness of Breath, Cough, Sputum Cardiovascular: Denies: Chest Pain, Edema Endocrine: Reports: Fatigue GI/Abdominal: Reports: Abdominal Pain, Diarrhea, Decreased Appetite, Nausea, Vomiting : Reports: No Symptoms. Denies: Dysuria, Frequency, Urgency Musculoskeletal: Reports: No Symptoms Skin: Reports: No Symptoms Neurological: Reports: Weakness ED EXAM, GI/ABD - Physical Exam Exam: See Below Exam Limited By: No Limitations General Appearance: Alert, WD/WN, No Apparent Distress Throat/Mouth: Normal Inspection, Normal Lips, Normal Teeth, Normal Gums, Normal Oropharynx, Normal Voice, No Airway Compromise, Other (dry mucous membranes) Head: Atraumatic, Normocephalic Neck: Normal Inspection, Supple, Non-Tender, Full Range of Motion Respiratory/Chest: No Respiratory Distress, Lungs Clear, Normal Breath Sounds, No Accessory Muscle Use, Chest Non-Tender Cardiovascular: Normal Peripheral Pulses, Regular Rate, Rhythm, No Edema, No Gallop, No JVD, No Murmur, No Rub GI/Abdominal Exam: Normal Bowel Sounds, Soft, No Distention, No Mass, Tender ( epigastric area). No: Guarding, Rigid, Rebound Back Exam: Normal Inspection, Full Range of Motion, NT Extremities: Normal Inspection, Normal Range of Motion, Non-Tender, Normal Capillary Refill, No Pedal Edema Neurological: Alert, Oriented, CN II-XII Intact, Normal Cognition, Normal Gait, Normal Reflexes, No Motor/Sensory Deficits Psychiatric: Normal Affect, Normal Mood Skin Exam: Warm, Dry, Intact Lymphatic: No Adenopathy Course - Vital Signs Last Recorded V/S: Last Vital Signs Temp 100.3 F 04/10/19 09:59 Pulse 100 04/10/19 09:59 Resp 18 04/10/19 09:59 BP 139/60 04/10/19 09:59 Pulse Ox 98 04/10/19 09:59 - Orders/Labs/Meds Orders: Active Orders 24 hr Category Date Time Status CULTURE URINE [RM] Stat Lab 04/10/19 07:52 Received Ondansetron [Zofran] Med 04/10/19 08:24 Active 4 mg IVPUSH Q6H PRN Resuscitation Status Routine Resus Stat 04/10/19 13:12 Ordered Medication Orders Albuterol/Ipratropium (Duoneb 3.0-0.5 Mg/3 Ml) 3 ml INH QID PRN PRN Reason: Dyspnea Aspirin (Halfprin) 81 mg PO DAILY [facility] Ceftriaxone Sodium (Rocephin) 1 gm IVPUSH DAILY@1200 [facility] Last Admin: 04/10/19 15:10 Dose: 1 gm Enoxaparin Sodium (Lovenox) 40 mg SUBCUT DAILY@1200 [facility] Last Admin: 04/10/19 15:10 Dose: 40 mg Sodium Chloride (Normal Saline) 1,000 mls @ 75 mls/hr IV ASDIRECTED [facility] Last Admin: 04/10/19 15:11 Dose: 75 mls/hr Non-Formulary Medication (Albuterol) 2 puff INH QID PRN PRN Reason: Shortness of Breath Non-Formulary Medication (Fluticasone/Salmeterol [Advair 250-50 Diskus]) 1 puff INH BEDTIME [facility] Non-Formulary Medication (Lisinopril/Hydrochlorothiazide [Lisinopril-Hctz 20-25 Mg Tab]) 1 tab PO DAILY [facility] Ondansetron HCl (Zofran) 4 mg IVPUSH Q6H PRN PRN Reason: Nausea Last Admin: 04/10/19 08:30 Dose: 4 mg Labs: Laboratory Tests 04/10/19 04/10/19 04/10/19 Range/Units 07:52 08:08 08:08 WBC 7.7 (5.0-10.0) 10^3/uL RBC 4.40 (4.00-5.50) 10^6/uL Hgb 14.7 (12.0-16.0) g/dL Hct 45.3 (37.0-47.0) % MCV 103.0 H (82.0-94.0) fL MCH 33.4 H (27.0-32.0) pg MCHC 32.5 L (33.0-38.0) g/dL RDW Coeff of Ed 12.9 (11.0-15.0) % Plt Count 228 (150-400) 10^3/uL Neut % (Auto) 91.5 H (35-85) % Lymph % (Auto) 2.6 L (10-55) % Sharkey % (Auto) 5.1 (0-16) % Eos % (Auto) 0.7 (0-5) % Baso % (Auto) 0.1 (0-3) % Neut # (Auto) 7.02 H (1.80-7.00) 10^3/uL Lymph # (Auto) 0.20 L (1.00-4.80) 10^3/uL Sharkey # (Auto) 0.39 (0.00-0.80) 10^3/uL Eos # (Auto) 0.05 (0.00-0.45) 10^3/uL Baso # (Auto) 0.01 10^3/uL Sodium (136-145) mEq/L Potassium (3.5-5.0) mEq/L Chloride (98-106) mEq/L Carbon Dioxide (21-32) mmol/L BUN (7-18) mg/dL Creatinine (0.6-1.0) mg/dL Est Cr Clr Drug Dosing mL/min Estimated GFR (MDRD) (>=60) mL/min Glucose (75-99) mg/dL Calcium (8.4-10.1) mg/dL Total Bilirubin (0.0-1.0) mg/dL AST (15-37) U/L ALT (12-78) U/L Alkaline Phosphatase (46-116) U/L C-Reactive Protein 0.8 (0.2-0.8) mg/dL Total Protein (6.4-8.2) g/dL Albumin (3.4-5.0) g/dL Amylase (25-115) U/L Lipase (73-393) U/L Urine Color Yellow (YELLOW) Urine Appearance Clear (CLEAR) Urine pH 5.0 (4.5-8.0) Ur Specific [place] >= 1.030 H (1.003-1.020) Urine Protein 30 H (NEGATIVE) mg/dL Urine Glucose (UA) Negative (NEGATIVE) mg/dL Urine Ketones 40 H (NEGATIVE) mg/dL Urine Occult Blood Moderate H (NEGATIVE) Urine Nitrite Negative (NEGATIVE) Urine Bilirubin Small H (NEGATIVE) Urine Urobilinogen 0.2 (0.2-1.0) EU/dL Ur Leukocyte Esterase Moderate H (NEGATIVE) Urine RBC 5-10 H (0-5) /HPF Urine WBC 50-75 H (0-5) /HPF Ur Squamous Epith Cells Few H (NOT SEEN) /HPF Urine Bacteria Few H (NOT SEEN) /HPF Urinalysis Comment 04/10/19 Range/Units 08:08 WBC (5.0-10.0) 10^3/uL RBC (4.00-5.50) 10^6/uL Hgb (12.0-16.0) g/dL Hct (37.0-47.0) % MCV (82.0-94.0) fL MCH (27.0-32.0) pg MCHC (33.0-38.0) g/dL RDW Coeff of Ed (11.0-15.0) % Plt Count (150-400) 10^3/uL Neut % (Auto) (35-85) % Lymph % (Auto) (10-55) % Sharkey % (Auto) (0-16) % Eos % (Auto) (0-5) % Baso % (Auto) (0-3) % Neut # (Auto) (1.80-7.00) 10^3/uL Lymph # (Auto) (1.00-4.80) 10^3/uL Sharkey # (Auto) (0.00-0.80) 10^3/uL Eos # (Auto) (0.00-0.45) 10^3/uL Baso # (Auto) 10^3/uL Sodium 142 (136-145) mEq/L Potassium 4.0 (3.5-5.0) mEq/L Chloride 104 (98-106) mEq/L Carbon Dioxide 28 (21-32) mmol/L BUN 23 H D (7-18) mg/dL Creatinine 1.0 D (0.6-1.0) mg/dL Est Cr Clr Drug Dosing 39.59 mL/min Estimated GFR (MDRD) 54 L (>=60) mL/min Glucose 120 H (75-99) mg/dL Calcium 9.0 (8.4-10.1) mg/dL Total Bilirubin 0.7 (0.0-1.0) mg/dL AST 24 (15-37) U/L ALT 26 (12-78) U/L Alkaline Phosphatase 101 (46-116) U/L C-Reactive Protein (0.2-0.8) mg/dL Total Protein 7.3 (6.4-8.2) g/dL Albumin 4.0 (3.4-5.0) g/dL Amylase 67 (25-115) U/L Lipase 99 (73-393) U/L Urine Color (YELLOW) Urine Appearance (CLEAR) Urine pH (4.5-8.0) Ur Specific [place] (1.003-1.020) Urine Protein (NEGATIVE) mg/dL Urine Glucose (UA) (NEGATIVE) mg/dL Urine Ketones (NEGATIVE) mg/dL Urine Occult Blood (NEGATIVE) Urine Nitrite (NEGATIVE) Urine Bilirubin (NEGATIVE) Urine Urobilinogen (0.2-1.0) EU/dL Ur Leukocyte Esterase (NEGATIVE) Urine RBC (0-5) /HPF Urine WBC (0-5) /HPF Ur Squamous Epith Cells (NOT SEEN) /HPF Urine Bacteria (NOT SEEN) /HPF Urinalysis Comment Meds: Medications Generic Name Dose Route Start Last Admin Trade Name Freq PRN Reason Stop Dose Admin Albuterol/Ipratropium 3 ml 04/10/19 14:43 Duoneb 3.0-0.5 Mg/3 Ml INH QID PRN Dyspnea Aspirin 81 mg 04/11/19 08:00 Halfprin PO DAILY [facility] Ceftriaxone Sodium 1 gm 04/10/19 15:00 04/10/19 15:10 Rocephin IVPUSH 1 gm DAILY@1200 [facility] Administration Enoxaparin Sodium 40 mg 04/10/19 15:00 04/10/19 15:10 Lovenox SUBCUT 40 mg DAILY@1200 [facility] Administration Sodium Chloride 1,000 mls @ 75 mls/hr 04/10/19 14:45 04/10/19 15:11 Normal Saline IV 75 mls/hr ASDIRECTED [facility] Administration Non-Formulary Medication 2 puff 04/10/19 14:43 Albuterol INH QID PRN Shortness of Breath Non-Formulary Medication 1 puff 04/10/19 20:00 Fluticasone/Salmeterol [Advair 250-50 Diskus] INH BEDTIME [facility] Non-Formulary Medication 1 tab 04/11/19 08:00 Lisinopril/Hydrochlorothiazide [Lisinopril-Hctz 20-25 Mg Tab] PO DAILY [facility] Ondansetron HCl 4 mg 04/10/19 08:24 04/10/19 08:30 Zofran IVPUSH 4 mg Q6H PRN Administration Nausea Discontinued Medications Generic Name Dose Route Start Last Admin Trade Name Freq PRN Reason Stop Dose Admin Sodium Chloride 1,000 mls @ 500 mls/hr 04/10/19 08:24 04/10/19 08:39 Normal Saline IV 04/10/19 10:23 500 mls/hr .BOLUS ONE Administration Sodium Chloride Confirm 04/10/19 08:16 04/10/19 08:32 Normal Saline Administered 04/10/19 08:17 Not Given Dose 1,000 mls @ as directed .ROUTE .K-MED ONE - Re-Assessments/Exams Free Text/Narrative Re-Assessment/Exam: Discussed lab findings with patient and family. Family report they do not feel patient can go home with how weak she is. They request admission. Departure - Departure Time of Disposition: 08:44 Disposition: Refer to Observation Condition: Fair Clinical Impression: UTI, Urinary tract infectious disease, Viral gastroenteritis, Weakness, Dehydration - Discharge Information *PRESCRIPTION DRUG MONITORING PROGRAM REVIEWED*: Not Applicable *COPY OF PRESCRIPTION DRUG MONITORING REPORT IN PATIENT PHUONG: Not Applicable - Problem List Review Problem List Initiated/Reviewed/Updated: Yes - My Orders Last 24 Hours: My Active Orders 04/10/19 07:52 CULTURE URINE [RM] Stat 04/10/19 08:24 Ondansetron [Zofran] 4 mg IVPUSH Q6H PRN - Assessment/Plan Admission H&P: Please use this note as an admission H&P Last 24 Hours: My Active Orders 04/10/19 07:52 CULTURE URINE [RM] Stat 04/10/19 08:24 Ondansetron [Zofran] 4 mg IVPUSH Q6H PRN Assessment:: Viral Gastroenteritis UTI Dehydration Generalized Weakness Plan: Admit to observation for IVF Labs stable. UA positive. Will start IV Rocephin and get culture. Patient is very weak and requires assistance to and from the bathroom. Has been up to the bathroom 4 times since presenting to ED.
[2019-04-10] MEDS: Ondansetron 4 MG/2 ML SDV IVPUSH PRN ×2 (08:30→20:58)
[2019-04-10] MEDS ORDERED: Albuterol/Ipratropium 3.0-0.5 MG/3 ML Neb Soln INH PRN (14:43)
[2019-04-10] MEDS: Enoxaparin 40 MG/0.4 ML Syringe SUBCUT SCH (15:10)
[2019-04-10] MEDS: cefTRIAXone 1 GM Vial IVPUSH SCH (15:10)
[2019-04-10] MEDS: Sodium Chloride 0.9% 1,000 ML IV SCH (15:11)
[2019-04-10] MEDS ORDERED: Acetaminophen 325 MG Tab PO PRN (16:37)
[2019-04-10] MEDS: FLUTICASONE INH SCH (19:17)
[2019-04-10] MEDS: SALMETEROL INH SCH (19:17)
[2019-04-10] MEDS: ALBUTEROL INH PRN (19:19)
[2019-04-10] MEDS: Ibuprofen 200 MG Tab PO PRN (19:24)
[2019-04-10] MEDS: Acetaminophen 325 MG Tab PO PRN (20:50)
[2019-04-11] MEDS: Ibuprofen 200 MG Tab PO PRN ×2 (01:37→07:49)
[2019-04-11] MEDS: Sodium Chloride 0.9% 1,000 ML IV SCH (04:20)
[2019-04-11] MEDS: Acetaminophen 325 MG Tab PO PRN (04:35)
[2019-04-11] MEDS: Ondansetron 4 MG/2 ML SDV IVPUSH PRN (07:49)
[2019-04-11] MEDS: Aspirin 81 MG Tab.EC PO SCH (07:49)
[2019-04-11] MEDS ORDERED: LISINOPRIL HCTZ PO SCH (08:00)
[2019-04-11 08:41] LABS: CHLORIDE,CL 106 mEq/L (98-106); SODIUM,NA 141 mEq/L (136-145)
--- NOTE | 2019-04-11 08:41 | PCM.PN ---
- General Info Date of Service: 04/11/19 Admission Dx/Problem (Free Text): UTI Weakness Viral Gastroenteritis Functional Status: Reports: Ambulating. Denies: Pain Controlled, Tolerating Diet - Review of Systems General: Reports: Fever, Weakness, Fatigue, Malaise HEENT: Reports: No Symptoms Pulmonary: Denies: Shortness of Breath, Cough Cardiovascular: Reports: Chest Pain. Denies: Edema, Lightheadedness Gastrointestinal: Reports: Abdominal Pain, Nausea. Denies: Diarrhea, Vomiting Genitourinary: Reports: No Symptoms Musculoskeletal: Reports: No Symptoms Skin: Reports: No Symptoms Neurological: Reports: No Symptoms - Patient Data Vitals - Most Recent: Last Vital Signs Temp 98.5 F 04/11/19 07:44 Pulse 74 04/11/19 07:44 Resp 20 04/11/19 07:44 BP 102/47 L 04/11/19 07:44 Pulse Ox 99 04/11/19 07:44 Weight - Most Recent: 133 lb 3.2 oz I&O - Last 24 Hours: Intake & Output 04/10/19 04/11/19 04/11/19 22:59 06:59 14:59 Intake Total 986 Balance 986 Lab Results Last 24 Hours: Laboratory Results - last 24 hr 04/10/19 04/10/19 04/10/19 Range/Units 07:52 08:08 08:08 Sodium 142 (136-145) mEq/L Potassium 4.0 (3.5-5.0) mEq/L Chloride 104 (98-106) mEq/L Carbon Dioxide 28 (21-32) mmol/L BUN 23 H D (7-18) mg/dL Creatinine 1.0 D (0.6-1.0) mg/dL Est Cr Clr Drug Dosing 39.59 mL/min Estimated GFR (MDRD) 54 L (>=60) mL/min Glucose 120 H (75-99) mg/dL Calcium 9.0 (8.4-10.1) mg/dL Total Bilirubin 0.7 (0.0-1.0) mg/dL AST 24 (15-37) U/L ALT 26 (12-78) U/L Alkaline Phosphatase 101 (46-116) U/L C-Reactive Protein 0.8 (0.2-0.8) mg/dL Total Protein 7.3 (6.4-8.2) g/dL Albumin 4.0 (3.4-5.0) g/dL Amylase 67 (25-115) U/L Lipase 99 (73-393) U/L Urine Color Yellow (YELLOW) Urine Appearance Clear (CLEAR) Urine pH 5.0 (4.5-8.0) Ur Specific [place] >= 1.030 H (1.003-1.020) Urine Protein 30 H (NEGATIVE) mg/dL Urine Glucose (UA) Negative (NEGATIVE) mg/dL Urine Ketones 40 H (NEGATIVE) mg/dL Urine Occult Blood Moderate H (NEGATIVE) Urine Nitrite Negative (NEGATIVE) Urine Bilirubin Small H (NEGATIVE) Urine Urobilinogen 0.2 (0.2-1.0) EU/dL Ur Leukocyte Esterase Moderate H (NEGATIVE) Urine RBC 5-10 H (0-5) /HPF Urine WBC 50-75 H (0-5) /HPF Ur Squamous Epith Cells Few H (NOT SEEN) /HPF Urine Bacteria Few H (NOT SEEN) /HPF Urinalysis Comment Med Orders - Current: Current Medications Acetaminophen (Tylenol) 650 mg PO Q4H PRN PRN Reason: Pain/Fever Last Admin: 04/11/19 04:35 Dose: 650 mg Albuterol/Ipratropium (Duoneb 3.0-0.5 Mg/3 Ml) 3 ml INH QID PRN PRN Reason: Dyspnea Aspirin (Halfprin) 81 mg PO DAILY [facility] Last Admin: 04/11/19 07:49 Dose: 81 mg Ceftriaxone Sodium (Rocephin) 1 gm IVPUSH DAILY@1200 [facility] Last Admin: 04/10/19 15:10 Dose: 1 gm Enoxaparin Sodium (Lovenox) 40 mg SUBCUT DAILY@1200 [facility] Last Admin: 04/10/19 15:10 Dose: 40 mg Sodium Chloride (Normal Saline) 1,000 mls @ 75 mls/hr IV ASDIRECTED [facility] Last Admin: 04/11/19 04:20 Dose: 75 mls/hr Ibuprofen (Motrin) 400 mg PO Q6H PRN PRN Reason: Pain/Fever Last Admin: 04/11/19 07:49 Dose: 400 mg Ptom Albuterol (90 Mcg/Puff Hfa) 2 puff INH QID PRN PRN Reason: Shortness of Breath Last Admin: 04/10/19 19:19 Dose: 2 puff Ptom Fluticasone /Salmeterol [Advair 250-50 Diskus] 1 puff INH BEDTIME [facility] Last Admin: 04/10/19 19:17 Dose: 1 puff Ptom Lisinopril- (Hctz 20-25 Mg Tab) 1 tab PO DAILY [facility] Last Admin: 04/11/19 07:48 Dose: 1 tab Ondansetron HCl (Zofran) 4 mg IVPUSH Q6H PRN PRN Reason: Nausea Last Admin: 04/11/19 07:49 Dose: 4 mg Discontinued Medications Acetaminophen (Tylenol) 650 mg PO Q6H PRN PRN Reason: Pain/Fever Last Admin: 04/10/19 15:00 Dose: 650 mg Sodium Chloride (Normal Saline) 1,000 mls @ 500 mls/hr IV .BOLUS ONE Stop: 04/10/19 10:23 Last Admin: 04/10/19 08:39 Dose: 500 mls/hr Sodium Chloride (Normal Saline) Confirm Administered Dose 1,000 mls @ as directed .ROUTE .STK-MED ONE Stop: 04/10/19 08:17 Last Admin: 04/10/19 08:32 Dose: Not Given - Exam General: Alert, Oriented HEENT: Mucous Membr. Moist/[place] Neck: Supple Lungs: Clear to Auscultation, Normal Respiratory Effort Cardiovascular: Regular Rate, Regular Rhythm GI/Abdominal Exam: Normal Bowel Sounds, Soft, Tender (RUQ, RLQ pain) Extremities: Normal Inspection, No Pedal Edema Skin: Warm, Dry Neurological: No New Focal Deficit - Problem List & Annotations (1) UTI, Urinary tract infectious disease SNOMED Code(s): 88379201 Code(s): N39.0 - URINARY TRACT INFECTION, SITE NOT SPECIFIED Status: Acute Priority: High Current Visit: Yes (2) Viral gastroenteritis SNOMED Code(s): 897716700 Code(s): A08.4 - VIRAL INTESTINAL INFECTION, UNSPECIFIED Status: Acute Priority: High Current Visit: Yes (3) Weakness SNOMED Code(s): 20093207 Code(s): R53.1 - WEAKNESS Status: Acute Priority: High Current Visit: Yes - Problem List Review Problem List Initiated/Reviewed/Updated: Yes - My Orders Last 24 Hours: My Active Orders 04/11/19 08:18 CBC WITH AUTO DIFF [HEME] Routine 04/11/19 08:19 BASIC METABOLIC PANEL,BMP [CHEM] Routine C-REACTIVE PROTEIN [CHEM] Routine - Assessment Assessment:: UTI Viral Gastroenteritis - Plan Plan:: Patient admits to ongoing abdominal pain in RLQ, Right mid quadrant. Is nauseated but no further vomiting. No diarrhea stools since admit. She did have fevers last night, blood cultures were obtained. No appetite. Lung sounds are clear. Abdomen is soft, tender to right lower quadrant, right mid quadrant. Will repeat labs this am. Consider CT scan either today or tomorrow pending those results. Continue IV Rocephin for UTI. Reevaluate discharge potential in am.
[2019-04-11] MEDS ORDERED: Albuterol 8 GM Inhaler INH PRN (11:45)
[2019-04-11] MEDS: Enoxaparin 40 MG/0.4 ML Syringe SUBCUT SCH (13:18)
[2019-04-11] MEDS: cefTRIAXone 1 GM Vial IVPUSH SCH (13:19)
[2019-04-11] MEDS: NS + KCl 20mEq/L 1,000 ML IV SCH ×2 (16:11→23:26)
[2019-04-11] MEDS ORDERED: Atropine/Diphenoxylate 0.025-2.5 MG Tab PO ONE (18:21)
[2019-04-11] MEDS ORDERED: Atropine/Diphenoxylate 0.025-2.5 MG Tab ONE (18:45)
[2019-04-11] MEDS: SALMETEROL INH SCH (19:32)
[2019-04-11] MEDS: FLUTICASONE INH SCH (19:32)
[2019-04-11] MEDS: ALBUTEROL INH PRN (19:33)
[2019-04-11] MEDS: Atropine/Diphenoxylate 0.025-2.5 MG Tab PO PRN ×2 (21:15→22:05)
[2019-04-11] MEDS: Oxyquinoline/Emollient 0.3% Oint 1 OZ Canister TOP PRN (23:03)
[2019-04-12] MEDS: Aspirin 81 MG Tab.EC PO SCH (07:20)
[2019-04-12] MEDS ORDERED: Lisinopril 20 MG Tab PO SCH (08:00)
[2019-04-12] MEDS ORDERED: Hydrochlorothiazide 25 MG Tab PO SCH (08:00)
[2019-04-12] MEDS ORDERED: Iopamidol 612 MG/ML 100 ML Bottle IVPUSH ONE (08:53)
[2019-04-12] MEDS ORDERED: Barium Sulfate Oral Susp 450 ML Bottle PO ONE (08:54)
[2019-04-12 09:32] LABS: CHLORIDE,CL 107 mEq/L (98-106); SODIUM,NA 138 mEq/L (136-145)
[2019-04-12] MEDS ORDERED: Levofloxacin/Dextrose 5%-Water 500 MG in Premix Bag 1 BAG IV ONE (10:00)
[2019-04-12] MEDS: NS + KCl 20mEq/L 1,000 ML IV SCH ×2 (10:42→21:34)
[2019-04-12] MEDS ORDERED: Pantoprazole 40 MG Vial IVPUSH SCH (12:15)
[2019-04-12] MEDS ORDERED: Magnesium Sulfate/D5W 2 GM in Premix Bag 1 BAG IV ONE (12:46)
[2019-04-12] MEDS: Enoxaparin 40 MG/0.4 ML Syringe SUBCUT SCH (13:22)
[2019-04-12] MEDS: Calcium Carbonate 500 MG Tab.Chew PO SCH ×3 (13:23→19:47)
[2019-04-12] MEDS: SALMETEROL INH SCH (19:47)
[2019-04-12] MEDS: Atropine/Diphenoxylate 0.025-2.5 MG Tab PO PRN (19:47)
[2019-04-12] MEDS: FLUTICASONE INH SCH (19:47)
[2019-04-12] MEDS: Oxyquinoline/Emollient 0.3% Oint 1 OZ Canister TOP PRN (19:48)
--- NOTE | 2019-04-12 21:42 | PCM.PN ---
- General Info Date of Service: 04/12/19 Admission Dx/Problem (Free Text): UTI Weakness Viral Gastroenteritis Functional Status: Reports: Pain Controlled, Tolerating Diet, Ambulating - Review of Systems General: Reports: Fatigue. Denies: Fever, Weakness HEENT: Denies: Ear Pain, Sinus Congestion, Rhinitis Pulmonary: Denies: Shortness of Breath, Cough Cardiovascular: Denies: Chest Pain, Edema, Lightheadedness Gastrointestinal: Reports: Abdominal Pain, Diarrhea. Denies: Nausea, Vomiting Genitourinary: Reports: No Symptoms Musculoskeletal: Reports: No Symptoms Skin: Reports: No Symptoms Neurological: Reports: No Symptoms Psychiatric: Reports: No Symptoms - Patient Data Vitals - Most Recent: Last Vital Signs Temp 98 F 04/12/19 16:00 Pulse 72 04/12/19 16:00 Resp 18 04/12/19 16:00 BP 132/78 04/12/19 16:00 Pulse Ox 95 04/12/19 16:00 Weight - Most Recent: 133 lb 3.2 oz I&O - Last 24 Hours: Intake & Output 04/12/19 04/12/19 04/12/19 06:59 14:59 22:59 Intake Total 725 1000 1000 Balance 725 1000 1000 Lab Results Last 24 Hours: Laboratory Results - last 24 hr 04/12/19 04/12/19 04/12/19 Range/Units 09:19 09:19 12:03 WBC 2.1 L (5.0-10.0) 10^3/uL RBC 3.02 L (4.00-5.50) 10^6/uL Hgb 10.2 L (12.0-16.0) g/dL Hct 32.1 L (37.0-47.0) % MCV 106.3 H (82.0-94.0) fL MCH 33.8 H (27.0-32.0) pg MCHC 31.8 L (33.0-38.0) g/dL RDW Coeff of Ed 12.9 (11.0-15.0) % Plt Count 101 L (150-400) 10^3/uL Neut % (Auto) 65.4 (35-85) % Lymph % (Auto) 19.2 (10-55) % [place] % (Auto) 14.0 (0-16) % Eos % (Auto) 1.4 (0-5) % Baso % (Auto) 0 (0-3) % Neut # (Auto) 1.40 L (1.80-7.00) 10^3/uL Lymph # (Auto) 0.41 L (1.00-4.80) 10^3/uL [place] # (Auto) 0.30 (0.00-0.80) 10^3/uL Eos # (Auto) 0.03 (0.00-0.45) 10^3/uL Baso # (Auto) 0.00 10^3/uL Sodium 138 (136-145) mEq/L Potassium 3.8 (3.5-5.0) mEq/L Chloride 107 H (98-106) mEq/L Carbon Dioxide 24 (21-32) mmol/L BUN 12 (7-18) mg/dL Creatinine 0.6 (0.6-1.0) mg/dL Est Cr Clr Drug Dosing 65.98 mL/min Estimated GFR (MDRD) > 60 (>=60) mL/min Glucose 53 L D (75-99) mg/dL Calcium 6.9 L* (8.4-10.1) mg/dL Magnesium 1.6 L (1.8-2.4) mg/dL C-Reactive Protein 5.6 H (0.2-0.8) mg/dL Timothy Results Last 24 Hours: Microbiology 04/10/19 20:50 Aerobic Blood Culture - Preliminary Blood - Venous NO GROWTH AFTER 2 DAYS Anaerobic Blood Culture - Preliminary NO GROWTH AFTER 2 DAYS 04/10/19 20:45 Aerobic Blood Culture - Preliminary Blood - Venous - Lab Draw NO GROWTH AFTER 2 DAYS Anaerobic Blood Culture - Preliminary NO GROWTH AFTER 2 DAYS 04/10/19 07:52 Urine Culture - Final Urine, Voided Escherichia Coli Med Orders - Current: Current Medications Acetaminophen (Tylenol) 650 mg PO Q4H PRN PRN Reason: Pain/Fever Last Admin: 04/11/19 04:35 Dose: 650 mg Albuterol (Ventolin Hfa) 2 gm INH QID PRN PRN Reason: Shortness of Breath Albuterol/Ipratropium (Duoneb 3.0-0.5 Mg/3 Ml) 3 ml INH QID PRN PRN Reason: Dyspnea Aspirin (Halfprin) 81 mg PO DAILY [place] Last Admin: 04/12/19 07:20 Dose: 81 mg Calcium Carbonate/Glycine (Tums) 1,000 mg PO QID [facility] Last Admin: 04/12/19 19:47 Dose: 1,000 mg Diphenoxylate HCl/Atropine (Lomotil 0.025-2.5 Mg) 1 - 2 tab PO TID PRN PRN Reason: Diarrhea Last Admin: 04/12/19 19:47 Dose: 2 tab Enoxaparin Sodium (Lovenox) 40 mg SUBCUT DAILY@1200 [facility] Last Admin: 04/12/19 13:22 Dose: Not Given Hydrochlorothiazide (Hydrochlorothiazide) 25 mg PO DAILY [facility] Last Admin: 04/12/19 07:19 Dose: 25 mg Potassium Chloride/Sodium Chloride (Normal Saline With 20 Meq Kcl) 1,000 mls @ 100 mls/hr IV ASDIRECTED [facility] Last Admin: 04/12/19 21:34 Dose: 100 mls/hr Levofloxacin/Dextrose 250 mg/ (Premix) 50 mls @ 50 mls/hr IV DAILY [facility] Ibuprofen (Motrin) 400 mg PO Q6H PRN PRN Reason: Pain/Fever Last Admin: 04/11/19 07:49 Dose: 400 mg Lisinopril (Prinivil) 20 mg PO DAILY [facility] Last Admin: 04/12/19 07:19 Dose: 20 mg Ptom Fluticasone /Salmeterol [Advair 250-50 Diskus] 1 puff INH BEDTIME [facility] Last Admin: 04/12/19 19:47 Dose: 1 puff Ondansetron HCl (Zofran) 4 mg IVPUSH Q6H PRN PRN Reason: Nausea Last Admin: 04/11/19 07:49 Dose: 4 mg Oxyquinoline Sulfate (Bag [place] Oint) 0 oz TOP ASDIRECTED PRN PRN Reason: give for rectal soreness Last Admin: 04/12/19 19:48 Dose: 1 applic Pantoprazole Sodium (Protonix Iv) 40 mg IVPUSH ACBREAKFAST [facility] Last Admin: 04/12/19 13:23 Dose: 40 mg Discontinued Medications Acetaminophen (Tylenol) 650 mg PO Q6H PRN PRN Reason: Pain/Fever Last Admin: 04/10/19 15:00 Dose: 650 mg Barium Sulfate (Readi-Cat 2) 900 ml PO ONETIME ONE Stop: 04/12/19 08:55 Last Admin: 04/12/19 09:08 Dose: 900 ml Ceftriaxone Sodium (Rocephin) 1 gm IVPUSH DAILY@1200 [place] Last Admin: 04/11/19 13:19 Dose: 1 gm Diphenoxylate HCl/Atropine (Lomotil 0.025-2.5 Mg) 2 tab PO ONETIME ONE Stop: 04/11/19 18:22 Last Admin: 04/11/19 18:41 Dose: 2 tab Diphenoxylate HCl/Atropine (Lomotil 0.025-2.5 Mg) Confirm Administered Dose 2 tab .ROUTE .STK-MED ONE Stop: 04/11/19 18:46 Last Admin: 04/11/19 18:48 Dose: Not Given Sodium Chloride (Normal Saline) 1,000 mls @ 500 mls/hr IV .BOLUS ONE Stop: 04/10/19 10:23 Last Admin: 04/10/19 08:39 Dose: 500 mls/hr Sodium Chloride (Normal Saline) Confirm Administered Dose 1,000 mls @ as directed .ROUTE .STK-MED ONE Stop: 04/10/19 08:17 Last Admin: 04/10/19 08:32 Dose: Not Given Sodium Chloride (Normal Saline) 1,000 mls @ 75 mls/hr IV ASDIRECTED [facility] Last Admin: 04/11/19 04:20 Dose: 75 mls/hr Levofloxacin/Dextrose 500 mg/ (Premix) 100 mls @ 100 mls/hr IV ONETIME ONE Stop: 04/12/19 10:59 Last Admin: 04/12/19 09:32 Dose: 100 mls/hr Magnesium Sulfate/Dextrose 2 (gm/ Premix) 200 mls @ 100 mls/hr IV ONETIME ONE Stop: 04/12/19 14:45 Last Admin: 04/12/19 13:24 Dose: 100 mls/hr Iopamidol (Isovue-300 (61%)) 100 ml IVPUSH ONETIME ONE Stop: 04/12/19 08:54 Last Admin: 04/12/19 09:09 Dose: 100 ml Ptom Albuterol (90 Mcg/Puff Hfa) 2 puff INH QID PRN PRN Reason: Shortness of Breath Last Admin: 04/11/19 19:33 Dose: 2 puff Ptom Lisinopril- (Hctz 20-25 Mg Tab) 1 tab PO DAILY [place] Last Admin: 04/11/19 07:48 Dose: 1 tab - Exam General: Alert, Oriented HEENT: Mucous Membr. Moist/[place] Neck: Supple Lungs: Clear to Auscultation, Normal Respiratory Effort Cardiovascular: Regular Rate, Regular Rhythm GI/Abdominal Exam: Normal Bowel Sounds, Soft, Tender (RUQ) Extremities: Normal Inspection, No Pedal Edema Skin: Warm, Dry Neurological: No New Focal Deficit - Problem List & Annotations (1) UTI, Urinary tract infectious disease SNOMED Code(s): 23773330 Code(s): N39.0 - URINARY TRACT INFECTION, SITE NOT SPECIFIED Status: Acute Priority: High Current Visit: Yes (2) Viral gastroenteritis SNOMED Code(s): 655238077 Code(s): A08.4 - VIRAL INTESTINAL INFECTION, UNSPECIFIED Status: Acute Priority: High Current Visit: Yes (3) Weakness SNOMED Code(s): 09500316 Code(s): R53.1 - WEAKNESS Status: Acute Priority: High Current Visit: Yes - Problem List Review Problem List Initiated/Reviewed/Updated: Yes - My Orders Last 24 Hours: My Active Orders 04/11/19 20:52 Atropine/Diphenoxylate [Lomotil 0.025-2.5 MG] 1 - 2 tab PO TID PRN 04/11/19 22:02 Oxyquinoline/Emollient [Bag [place] Oint] See Dose Instructions TOP ASDIRECTED PRN 04/12/19 05:11 Abdomen Pelvis w Cont [CT] Routine 04/12/19 09:10 Consult to Physical Therapy [PT Evaluation and Treatment] [CONS] Routine 04/12/19 12:15 Pantoprazole [ProTONIX IV] 40 mg IVPUSH ACBREAKFAST 04/13/19 08:00 Abdomen Ltd [US] Routine Levofloxacin/Dextrose 5%-Water [Levaquin in D5W 250 MG/50 ML] 250 mg Premix Bag 1 bag IV DAILY 04/13/19 Breakfast NPO [Nothing Per Oral Diet] [DIET] - Assessment Assessment:: UTI Viral Gastroenteritis - Plan Plan:: Patient admits to ongoing abdominal pain in RLQ, Right mid quadrant. Is nauseated but no further vomiting. No diarrhea stools since admit. She did have fevers last night, blood cultures were obtained. No appetite. Lung sounds are clear. Abdomen is soft, tender to right lower quadrant, right mid quadrant. Will repeat labs this am. Consider CT scan either today or tomorrow pending those results. Continue IV Rocephin for UTI. Reevaluate discharge potential in am. 04-12-2019 Patient had multiple loose stools over the last 24 hours, states did slow during the night after dose of Lomotil. She states abdominal pain more localized to RUQ now. No nausea. Stool samples were collected yesterday, were negative. Lab results shows WBC down to 2.1 today. Hemoglobin 10.2. Potassium is improved to 3.8 as has been getting NS with KCL. Magnesium low at 1.6, calcium 6.9. Urine culture shows e coli. Switched to Levaquin for better coverage for the bowel. Magnesium sulfate 2 gm IV. TUMS QID. Protonix IV started. Awaiting results of CT. addendum: CT report received. Shows distended gallbladder. Did consult with Dr. Caro. Recommends obtaining gallbladder ultrasound, possible HIDA if needed. Follow labs.
[2019-04-13] MEDS: NS + KCl 20mEq/L 1,000 ML IV SCH (06:49)
[2019-04-13 07:54] LABS: CHLORIDE,CL 111 mEq/L (98-106); SODIUM,NA 143 mEq/L (136-145)
[2019-04-13] MEDS ORDERED: Levofloxacin/Dextrose 5%-Water 250 MG in Premix Bag 1 BAG IV SCH (08:00)
[2019-04-13] MEDS ORDERED: Sodium Chloride 0.9% 1,000 ML IV SCH (12:30)
[2019-04-13 14:19] VITALS: BP 149/95
== END 2019-04-13 14:15 | DRG 690 ==
LOC: CC.ED 07:35 → CC.MS 08:47 → UNDOADMOB 08:47 → OBSVTOIN 14:39 → INTOOBSV 14:39 → CC.MS 14:39 → OBSVTOIN 04-11 14:25
PROVIDERS: ADMIT Nurse Practitioner Family; ATTEND Family Medicine
DX: N39.0 Urinary tract infection, site not specified (principal); A08.39 Other viral enteritis; R53.1 Weakness; E86.0 Dehydration; I10 Essential (primary) hypertension; J45.909 Unspecified asthma, uncomplicated; G35 Multiple sclerosis; B96.20 Unspecified Escherichia coli [E. coli] as the cause of diseases classified elsewhere; Z79.82 Long term (current) use of aspirin
CPT/HCPCS: 36415; 74177; 76705; 80048; 80053; 81001; 81003; 82150; 83690; 83735; 85025; 86140; 87040; 87045; 87046; 87086; 87088; 87186; 87493; 89055; 96361; 96372; 96374; 96375; 96376; 97161-GP; 99284-25; A4217; A9270-GY; C9113; G0378; J0696; J1650; J1956; J2405; J3475; J3480; J7030; Q9967

== ENCOUNTER 2024-05-18 04:05 | Inpatient (IN) | payer MEDICARE, OTHER ==
[2024-05-18] MEDS: Albuterol/Ipratropium 3.0-0.5 MG/3 ML Neb Soln NEB ONE (04:26)
[2024-05-18] MEDS: Sodium Chloride 0.9% 1,000 ML IV ONE ×2 (04:33→06:29)
[2024-05-18] MEDS: Albuterol/Ipratropium 3.0-0.5 MG/3 ML Neb Soln ONE (04:34)
[2024-05-18 05:01] LABS: BASOPHILS ABSOLUTE AUTO 0.01 10^3/uL (0.00-0.50); BASOPHILS PERCENT AUTO 0.1 % (0-1); IMMATURE GRAN ABSOLUTE AUTO 0.03 10^3/uL (0.00-0.49); IMMATURE GRAN PERCENT AUTO 0.2 % (0.0-4.9); LYMPHOCYTES ABSOLUTE AUTO 0.35 10^3/uL (0.60-5.00); LYMPHOCYTES PERCENT AUTO 2.7 % (24-44); MEAN CORPUSCULAR HEMOGLOBIN 33.4 pg (27.0-32.0); MEAN CORPUSCULAR HGB CONC 32.5 g/dL (32.0-36.0); MEAN CORPUSCULAR VOLUME 102.8 fL (83.0-97.0); MONOCYTES ABSOLUTE AUTO 0.58 10^3/uL (0.00-1.50); MONOCYTES PERCENT AUTO 4.4 % (0-10); NEUTROPHILS ABSOLUTE AUTO 12.18 x10^3/uL (1.80-8.00); NEUTROPHILS PERCENT AUTO 92.6 % (41-71); PLATELET COUNT,PLT 160 10^3/uL (150-400); RED BLOOD CELL COUNT 3.89 x10^6/uL (4.00-5.50); WHITE BLOOD CELL COUNT,WBC 13.2 10^3/uL (4.0-11.0)
[2024-05-18 05:02] LABS: O2 DELIVERY DEVICE NASAL CANNULA
[2024-05-18 05:09] LABS: BASE EXCESS ARTERIAL -5.2 (-2.0-3.0); BICARBONATE,ARTERIAL 20.8 mm/L (22.0-26.0); O2 SATURATION ARTERIAL 95 % (95-98); PCO2 ARTERIAL 40 mm/Hg0 (35-45); PH,ARTERIAL 7.32 (7.35-7.45); PO2 ARTERIAL 83 mm/Hg (80-100)
[2024-05-18 05:25] LABS: ALANINE AMINOTRANSFERASE,ALT 112 U/L (12-78); ALBUMIN 2.8 g/dL (3.4-5.0); ALKALINE PHOSPHATASE 60 U/L (46-116); ASPARTATE AMNIOTRANSFERASE,AST 476 U/L (15-37); BILIRUBIN TOTAL 0.5 mg/dL (0.0-1.0); BLOOD UREA NITROGEN,BUN 55 mg/dL (7-18); C-REACTIVE PROTEIN 11.09 mg/dL (<=0.50); CALCIUM 8.3 mg/dL (8.4-10.1); CARBON DIOXIDE,CO2 22 mmol/L (21-32); CHLORIDE,CL 102 mEq/L (98-106); CREATININE 3.3 mg/dL (0.6-1.0); ESTIMATED GFR 13 mL/min (>=60); GLUCOSE RANDOM 159 mg/dL (75-99); POTASSIUM,K 3.6 mEq/L (3.5-5.0); PRO B-TYPE NATRIUR PEPT,BNPPRO 831 pg/mL (0-1000); PROTEIN TOTAL,TP 6.1 g/dL (6.4-8.2); SODIUM,NA 140 mEq/L (136-145)
[2024-05-18 05:37] LABS: PTT,PARTIAL THROMBOPLSTIN TIME 26.5 SEC (20.0-30.0)
[2024-05-18 05:49] LABS: D-DIMER QUANTITATIVE 6.12 (0.00-0.50)
[2024-05-18] MEDS: methylPREDNISolone Sodium Succinate 40 MG/1 ML SDV IVPUSH SCH ×2 (06:30→19:30)
[2024-05-18] MEDS: cefTRIAXone 2 GM Vial IVPUSH ONE (06:30)
[2024-05-18] MEDS: Azithromycin 500 MG in Sodium Chloride 0.9% 250 ML IV SCH (06:30)
[2024-05-18 07:23] LABS: APPEARANCE,URINE CLEAR (CLEAR); BILIRUBIN,URINE NEGATIVE (NEGATIVE); COLOR,URINE YELLOW (YELLOW); GLUCOSE,URINE NEGATIVE (NEGATIVE); KETONES,URINE NEGATIVE (NEGATIVE); LEUKOCYTE ESTERASE,URINE NEGATIVE (NEGATIVE); NITRITE,URINE NEGATIVE (NEGATIVE); OCCULT BLOOD,URINE LARGE (NEGATIVE); PH,URINE 5.5 (4.5-8.0); PROTEIN,URINE 30 mg/dL (NEGATIVE); UROBILINOGEN,URINE 0.2 EU/dL (0.2-1.0)
[2024-05-18 07:26] LABS: BACTERIA,URINE OCCASIONAL /HPF (NOT SEEN); EPITHELIAL CELLS,URINE NOT SEEN /HPF (NOT SEEN); MUCUS,URINE OCCASIONAL /HPF (NOT SEEN); WBC,URINE NOT SEEN /HPF (0-5)
[2024-05-18] MEDS ORDERED: Ondansetron 4 MG Tab.DIS PO PRN (07:48)
[2024-05-18] MEDS ORDERED: Ondansetron 4 MG/2 ML SDV IV PRN (07:48)
[2024-05-18] MEDS: Heparin Sodium 5,000 Units/ML Vial SUBCUT SCH (07:58)
[2024-05-18] MEDS: Albuterol/Ipratropium 3.0-0.5 MG/3 ML Neb Soln NEB SCH (07:58)
[2024-05-18] MEDS: Aspirin 81 MG Tab.EC PO SCH (07:59)
[2024-05-18] MEDS: Lactated Ringers 1,000 ML IV SCH (08:01)
[2024-05-18 11:32] LABS: BASOPHILS ABSOLUTE AUTO 0.01 10^3/uL (0.00-0.50); BASOPHILS PERCENT AUTO 0.1 % (0-1); HEMATOCRIT 37.6 % (37.0-47.0); HEMOGLOBIN 12.1 g/dL (12.0-16.0); IMMATURE GRAN ABSOLUTE AUTO 0.01 10^3/uL (0.00-0.49); IMMATURE GRAN PERCENT AUTO 0.1 % (0.0-4.9); LYMPHOCYTES ABSOLUTE AUTO 0.22 10^3/uL (0.60-5.00); MEAN CORPUSCULAR HEMOGLOBIN 33.2 pg (27.0-32.0); MEAN CORPUSCULAR HGB CONC 32.2 g/dL (32.0-36.0); MONOCYTES ABSOLUTE AUTO 0.57 10^3/uL (0.00-1.50); MONOCYTES PERCENT AUTO 5.2 % (0-10); NEUTROPHILS ABSOLUTE AUTO 10.21 x10^3/uL (1.80-8.00); NEUTROPHILS PERCENT AUTO 92.6 % (41-71); PLATELET COUNT,PLT 127 10^3/uL (150-400); RED BLOOD CELL COUNT 3.65 x10^6/uL (4.00-5.50)
[2024-05-18 11:46] LABS: ALBUMIN 2.5 g/dL (3.4-5.0); BILIRUBIN TOTAL 0.4 mg/dL (0.0-1.0); CALCIUM 7.8 mg/dL (8.4-10.1); EST CRCL DRUG DOSING (CG) 12.94 mL/min; MAGNESIUM 1.9 mg/dL (1.8-2.4); POTASSIUM,K 4.2 mEq/L (3.5-5.0); PROTEIN TOTAL,TP 5.6 g/dL (6.4-8.2)
[2024-05-18] MEDS: Formoterol/Mometasone 200-5 MCG 8.8 GM Inhaler IH SCH (19:34)
[2024-05-19] MEDS ORDERED: cefTRIAXone 1 GM Vial IVPUSH SCH (06:00)
[2024-05-19] MEDS: cefTRIAXone 1 GM Vial IVPUSH SCH (07:37)
[2024-05-19] MEDS: Azithromycin 500 MG in Sodium Chloride 0.9% 250 ML IV SCH (07:37)
[2024-05-19 07:58] LABS: HEMATOCRIT 32.2 % (37.0-47.0); HEMOGLOBIN 10.3 g/dL (12.0-16.0); IMMATURE GRAN ABSOLUTE AUTO 0.04 10^3/uL (0.00-0.49); IMMATURE GRAN PERCENT AUTO 0.4 % (0.0-4.9); LYMPHOCYTES ABSOLUTE AUTO 0.24 10^3/uL (0.60-5.00); LYMPHOCYTES PERCENT AUTO 2.1 % (24-44); MEAN CORPUSCULAR HEMOGLOBIN 33.1 pg (27.0-32.0); MEAN CORPUSCULAR VOLUME 103.5 fL (83.0-97.0); MONOCYTES ABSOLUTE AUTO 0.53 10^3/uL (0.00-1.50); MONOCYTES PERCENT AUTO 4.7 % (0-10); NEUTROPHILS PERCENT AUTO 92.8 % (41-71); PLATELET COUNT,PLT 120 10^3/uL (150-400); RED BLOOD CELL COUNT 3.11 x10^6/uL (4.00-5.50); WHITE BLOOD CELL COUNT,WBC 11.3 10^3/uL (4.0-11.0)
[2024-05-19 08:24] LABS: ALBUMIN 2.1 g/dL (3.4-5.0); BILIRUBIN TOTAL 0.4 mg/dL (0.0-1.0); CALCIUM 7.6 mg/dL (8.4-10.1); EST CRCL DRUG DOSING (CG) 12.13 mL/min; MAGNESIUM 1.7 mg/dL (1.8-2.4); POTASSIUM,K 4.3 mEq/L (3.5-5.0); PROTEIN TOTAL,TP 5.1 g/dL (6.4-8.2)
[2024-05-19 08:29] LABS: CREATININE 3.2 mg/dL (0.6-1.0)
[2024-05-19] MEDS: Lactated Ringers 500 ML IV ONE (12:41)
[2024-05-19] MEDS: amLODIPine 10 MG Tab PO SCH (20:47)
[2024-05-20] MEDS: Cyanocobalamin (Vitamin B12) 1,000 MCG Tab PO SCH (07:41)
[2024-05-20] MEDS: Cholecalciferol (Vitamin D3) 25 MCG Tab PO SCH (07:41)
[2024-05-20 07:57] LABS: HEMOGLOBIN 10.7 g/dL (12.0-16.0); IMMATURE GRAN ABSOLUTE AUTO 0.05 10^3/uL (0.00-0.49); IMMATURE GRAN PERCENT AUTO 0.5 % (0.0-4.9); LYMPHOCYTES PERCENT AUTO 1.8 % (24-44); MEAN CORPUSCULAR HGB CONC 32.4 g/dL (32.0-36.0); MEAN CORPUSCULAR VOLUME 101.9 fL (83.0-97.0); MONOCYTES ABSOLUTE AUTO 0.46 10^3/uL (0.00-1.50); MONOCYTES PERCENT AUTO 4.2 % (0-10); NEUTROPHILS ABSOLUTE AUTO 10.32 x10^3/uL (1.80-8.00); NEUTROPHILS PERCENT AUTO 93.5 % (41-71); PLATELET COUNT,PLT 127 10^3/uL (150-400); RED BLOOD CELL COUNT 3.24 x10^6/uL (4.00-5.50)
[2024-05-21] MEDS: Albuterol 0.083% 2.5 MG/3 ML Neb Soln NEB PRN (02:12)
[2024-05-21 07:58] LABS: BASOPHILS ABSOLUTE AUTO 0.01 10^3/uL (0.00-0.50); BASOPHILS PERCENT AUTO 0.1 % (0-1); HEMATOCRIT 35.3 % (37.0-47.0); HEMOGLOBIN 11.5 g/dL (12.0-16.0); IMMATURE GRAN ABSOLUTE AUTO 0.08 10^3/uL (0.00-0.49); IMMATURE GRAN PERCENT AUTO 0.7 % (0.0-4.9); LYMPHOCYTES ABSOLUTE AUTO 0.24 10^3/uL (0.60-5.00); MEAN CORPUSCULAR HEMOGLOBIN 33.2 pg (27.0-32.0); MEAN CORPUSCULAR HGB CONC 32.6 g/dL (32.0-36.0); MONOCYTES ABSOLUTE AUTO 0.68 10^3/uL (0.00-1.50); MONOCYTES PERCENT AUTO 5.6 % (0-10); NEUTROPHILS ABSOLUTE AUTO 11.06 x10^3/uL (1.80-8.00); NEUTROPHILS PERCENT AUTO 91.6 % (41-71); PLATELET COUNT,PLT 175 10^3/uL (150-400); RED BLOOD CELL COUNT 3.46 x10^6/uL (4.00-5.50); WHITE BLOOD CELL COUNT,WBC 12.1 10^3/uL (4.0-11.0)
[2024-05-21 14:12] LABS: ALBUMIN 2.4 g/dL (3.4-5.0); BILIRUBIN TOTAL 0.4 mg/dL (0.0-1.0); CALCIUM 8.5 mg/dL (8.4-10.1); EST CRCL DRUG DOSING (CG) 13.87 mL/min; POTASSIUM,K 4.3 mEq/L (3.5-5.0); PROTEIN TOTAL,TP 5.4 g/dL (6.4-8.2)
[2024-05-21 14:15] LABS: CREATININE 2.8 mg/dL (0.6-1.0)
[2024-05-21] MEDS: Diltiazem 25 MG/5 ML SDV IVPUSH ONE ×2 (14:26→17:05)
[2024-05-21] MEDS: Sodium Chloride 0.9% 1,000 ML IV SCH (19:34)
[2024-05-21] MEDS: Diltiazem 100 MG in Sodium Chloride 0.9% 100 ML IV SCH (19:36)
[2024-05-21] MEDS: Furosemide 40 MG/4 ML VIAL IVPUSH ONE (20:15)
[2024-05-21] MEDS: Metoprolol Tartrate 5 MG/5 ML SDV IVPUSH ONE (22:34)
[2024-05-21] MEDS: Metoprolol Tartrate 5 MG/5 ML SDV IVPUSH STA ×2 (22:42→23:32)
[2024-05-21] MEDS: Metoprolol Tartrate 5 MG/5 ML SDV ONE (22:44)
[2024-05-22] MEDS: Metoprolol Tartrate 5 MG/5 ML SDV IVPUSH STA (02:12)
[2024-05-22] MEDS: Metoprolol Succinate 25 MG Tab.ER PO ONE (03:31)
[2024-05-22 08:36] LABS: BASOPHILS ABSOLUTE AUTO 0.01 10^3/uL (0.00-0.50); BASOPHILS PERCENT AUTO 0.1 % (0-1); HEMATOCRIT 37.7 % (37.0-47.0); HEMOGLOBIN 12.1 g/dL (12.0-16.0); IMMATURE GRAN ABSOLUTE AUTO 0.09 10^3/uL (0.00-0.49); IMMATURE GRAN PERCENT AUTO 0.7 % (0.0-4.9); LYMPHOCYTES ABSOLUTE AUTO 0.24 10^3/uL (0.60-5.00); MEAN CORPUSCULAR HEMOGLOBIN 33.1 pg (27.0-32.0); MEAN CORPUSCULAR HGB CONC 32.1 g/dL (32.0-36.0); MONOCYTES PERCENT AUTO 5.7 % (0-10); NEUTROPHILS ABSOLUTE AUTO 11.16 x10^3/uL (1.80-8.00); NEUTROPHILS PERCENT AUTO 91.5 % (41-71); PLATELET COUNT,PLT 200 10^3/uL (150-400); RED BLOOD CELL COUNT 3.66 x10^6/uL (4.00-5.50); WHITE BLOOD CELL COUNT,WBC 12.2 10^3/uL (4.0-11.0)
[2024-05-22] MEDS ORDERED: Apixaban 5 MG Tab PO ONE (09:45)
[2024-05-22] MEDS: Amiodarone 150 MG/3 ML SDV IVPUSH ONE (10:02)
[2024-05-22 10:08] LABS: ALBUMIN 2.3 g/dL (3.4-5.0); BILIRUBIN TOTAL 0.4 mg/dL (0.0-1.0); C-REACTIVE PROTEIN 1.34 mg/dL (<=0.50); CALCIUM 8.2 mg/dL (8.4-10.1); EST CRCL DRUG DOSING (CG) 14.38 mL/min; POTASSIUM,K 4.5 mEq/L (3.5-5.0); PROTEIN TOTAL,TP 5.4 g/dL (6.4-8.2)
[2024-05-22 10:11] LABS: CREATININE 2.7 mg/dL (0.6-1.0)
[2024-05-22] MEDS: Furosemide 40 MG/4 ML VIAL IVPUSH SCH (10:52)
[2024-05-22] MEDS: Furosemide 40 MG/4 ML VIAL IVPUSH ONE (15:44)
[2024-05-22] MEDS: Nystatin Susp 100,000 Unit/ML 5 ML UD Cup PO ONE (16:06)
[2024-05-22 16:32] VITALS: BP 128/62; PULSE 147
[2024-05-22] MEDS ORDERED: Apixaban 5 MG Tab PO SCH (20:00)
== END 2024-05-22 18:00 | DRG 682 ==
LOC: CC.ED 04:05 → CC.MS 07:05 → UNDOADMIN 07:05 → CC.MS 07:38
PROVIDERS: ADMIT Nurse Practitioner; ATTEND Nurse Practitioner
DX: N17.9 Acute kidney failure, unspecified (principal); K72.00 Acute and subacute hepatic failure without coma; E87.20 Acidosis, unspecified; J44.1 Chronic obstructive pulmonary disease with (acute) exacerbation; I48.92 Unspecified atrial flutter; D72.828 Other elevated white blood cell count; I10 Essential (primary) hypertension; J45.909 Unspecified asthma, uncomplicated; R79.1 Abnormal coagulation profile; G35 Multiple sclerosis; E86.0 Dehydration; I48.91 Unspecified atrial fibrillation; R79.89 Other specified abnormal findings of blood chemistry; Z79.51 Long term (current) use of inhaled steroids; R19.7 Diarrhea, unspecified; D72.829 Elevated white blood cell count, unspecified; Z88.8 Allergy status to other drugs, medicaments and biological substances; Z79.82 Long term (current) use of aspirin; Z90.89 Acquired absence of other organs; Z79.899 Other long term (current) drug therapy
CPT/HCPCS: 36415; 36600; 71045; 74176; 80053; 81001; 82803; 83605; 83735; 83880; 84484; 85025; 85379; 85730; 86140; 87040; 87493; 93005; 93010; 94640; 96361; 96365; 96375; 97161-GP; 99223; 99232; 99233; 99239; 99285-25; A9270-GY; J0282; J0456; J0696; J1644; J1940; J2919; J3490; J7030; J7050; J7120; J7613-GY; J7620-GY